=== PATIENT | male | born 1990 | race Caucasian/White ===

== ENCOUNTER 2020-04-15 13:54 | Emergency (ER) | payer OTHER, SELFPAY ==
[2020-04-15 14:14] VITALS: BP 122/87; PULSE 77; RESP 18; TEMP 36.4; O2SAT 98; BMI 34.7
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
== END 2020-04-15 14:56 | disposition home or self-care (01) ==
PROVIDERS: Emergency Provider Emergency Medicine; PCP Family Medicine
DX: S01.112A Laceration without foreign body of left eyelid and periocular area, initial encounter (principal); W51.XXXA Accidental striking against or bumped into by another person, initial encounter; Y93.66 Activity, soccer; Y92.322 Soccer field as the place of occurrence of the external cause; Y99.9 Unspecified external cause status
CPT/HCPCS: 12011; 90471; 99283; 99284

== ENCOUNTER 2020-04-26 22:12 | Emergency (ER) | payer OTHER, SELFPAY | END 2020-04-26 22:23 | disposition left against medical advice (07) | PROVIDERS: Emergency Provider Emergency Medicine Emergency Medical Services | DX: R05 Cough (principal) ==

== ENCOUNTER 2020-10-15 09:19 | Emergency (ER) | payer OTHER, SELFPAY ==
--- NOTE | ~2020-10-15 | MR_ITS ---
EXAMINATION: MR LUMBAR SPINE WITHOUT CONTRAST CLINICAL INFORMATION: Fecal incontinence. Back pain. Question cauda equina syndrome. COMPARISON: No relevant prior imaging. TECHNIQUE: MRI of the lumbar spine was obtained using routine sequences without contrast. FINDINGS: Alignment is normal. Vertebral body heights are preserved. No acute bone marrow signal changes. There is slight loss of intervertebral disc height and T2 signal intensity at L5-S1. The tip of the conus medullaris is located at L1-L2. No mass effect on the conus. Visualized distal cord signal intensity is normal. At L1-L2, L2-L3, L3-L4, and L4-L5 the annular contours are normal. No canal compromise. No mass effect on traversing or foraminal nerve roots at these 4 levels. At L5-S1 there is a broad central to right subarticular protrusion that causes abutment of the right traversing S1 nerve roots. Mild mass effect on the right L5 foraminal nerve root. Limited visualization of the retroperitoneal anatomy reveals no abnormal finding. Psoas and paraspinal muscle groups are symmetric. MR/MR lumbar spine wo con IMPRESSION: There is a broad shallow central to right subarticular protrusion at L5-S1 the causes subtle abutment of the right traversing S1 nerve roots and there is also mild mass effect on the foraminal segment of the right L5 nerve root at this level. Otherwise unremarkable lumbar spine MRI. No canal stenosis.
--- NOTE | ~2020-10-15 | CT_ITS ---
EXAMINATION: CT ABDOMEN AND PELVIS WITH CONTRAST CLINICAL INFORMATION: Hematuria with fecal incontinence and back pain COMPARISON: None TECHNIQUE: Multidetector volumetric images were obtained from the superior aspect of the liver through the pubic symphysis following administration 85 mL of Omnipaque 350 intravenous contrast. Sagittal and coronal reformatted images were obtained on the technologist's workstation. Oral contrast: No This CT examination was performed using dose optimization techniques as appropriate, variously including the following: *Automated exposure control *Adjustment of mA and/or kV according to patient size (this includes techniques or standardized protocols for targeted exams where dose is matched to indication/reason for exam; i.e. extremities or head) *Use of iterative reconstruction technique DLP: 927 mGy-cm FINDINGS: LUNG BASES: The visualized lung bases are unremarkable. LIVER, GALLBLADDER, AND BILIARY TREE: The liver is normal in size, shape, and attenuation. No focal hepatic lesion or biliary ductal dilatation is present. The gallbladder has been surgically removed. PANCREAS: Unremarkable. SPLEEN: Unremarkable. ADRENAL GLANDS: Unremarkable. KIDNEYS AND URETERS: The kidneys are normal in size, shape, and attenuation. No hydronephrosis, hydroureter, or calculi seen. No perinephric stranding. BLADDER: Unremarkable. GASTROINTESTINAL TRACT: There is scattered stool and gas seen throughout the colon without any significant distention. The small bowel loops are normal caliber. Appendix is normal caliber. The stomach is nondistended. No inflammatory process seen in the abdomen. ABDOMINAL WALL: No significant hernia is appreciated. LYMPH NODES: Normal. VASCULAR: Unremarkable. PELVIC VISCERA: Unremarkable. OSSEOUS STRUCTURES: No lytic or sclerotic process seen. CT/CT abdomen pelvis w con IMPRESSION: No acute intra-abdominal process seen. Especially there is no abnormality seen in the pelvis.
[2020-10-15 09:21] VITALS: BP 152/83; PULSE 98; RESP 16; TEMP 36.8; O2SAT 98; BMI 35.6
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
[2020-10-15] MEDS: LORazepam 1 MG TABLET 2 MG PO (10:29)
[2020-10-15 10:48] LABS: Basophils Percent Auto 0.6 % (0-2); Eosinophils Absolute Auto 0.1 X10*3/uL (0.0-0.4); Eosinophils Percent Auto 1.4 % (0-4); Hematocrit 41.6 % (42-52); Hemoglobin 13.9 g/dl (14.0-18.0); Imm Gran Abs Auto 0.02 X10*3/uL (0.00-0.03); Imm Gran Pct Auto 0.3 % (0.0-0.4); Lymphocytes Percent Auto 31.6 % (20-40); MANUAL DIFF FLAG NO; Mean Corpuscular HGB Conc 33.4 g/dl (31.0-36.0); Mean Corpuscular Hemoglobin 28.2 pg (27.0-33.0); Mean Corpuscular Volume 84.4 fL (80-98); Mean Platelet Volume 9.4 fL (9.4-12.4); Monocytes Absolute Auto 0.5 X10*3/uL (0.1-1.2); Monocytes Percent Auto 8.5 % (2-11); Neutrophils Absolute Auto 3.7 X10*3/uL (2.0-8.3); Neutrophils Percent Auto 57.6 % (45-73); Platelet Count 306 X10*3/uL (160-400); Red Blood Count 4.93 X10*6/uL (4.60-5.80); Red Cell Distribution Width 13.3 % (11.0-16.0); White Blood Count 6.4 X10*3/uL (4.8-10.8)
[2020-10-15 10:51] LABS: Glucose Urine UA NEG (NEG); Leukocyte Esterase Urine NEG (NEG); Nitrite Urine NEG (NEG); PH 5.5 (5.0-8.0); Specific Gravity - Urine >= 1.030 (1.005-1.025); Urine Blood 3+ (NEG); Urine Ketones 5 MG/DL (NEG); Urine Protein 1+ MG/DL (NEG-TRACE)
[2020-10-15 10:54] LABS: INTERNATIONAL NORM RATIO 1.1 (0.9-1.1); Prothrombin Time 13.6 SEC (10.8-13.0)
[2020-10-15 10:59] LABS: Appearance Urine TURBID; Color Urine DARK YELLOW
[2020-10-15 11:08] LABS: Amorphous Sediment Urine 4+ /LPF; WBC Urine 0 /HPF (0-4)
[2020-10-15 11:09] LABS: Magnesium 1.7 mg/dL (1.6-2.6)
[2020-10-15 11:10] LABS: Alanine Aminotransferase 22 U/L (0-40); Albumin Level 4.7 g/dL (3.5-5.0); Alkaline Phosphatase 84 U/L (39-117); Anion Gap 15 (12-20); Aspartate Amino Transferase 19 U/L (5-37); Bilirubin Total 0.8 mg/dL (0.0-1.0); Blood Urea Nitrogen 14 mg/dL (9-16); Calcium 9.9 mg/dL (8.4-10.2); Carbon Dioxide 23 mmol/L (22-29); Chloride 108 mmol/L (96-108); Creatinine Clr Calc Pharmacy 154.6; Estimated Glomerular Filt Rate > 60; Glucose Random 96 mg/dL (60-115); Potassium 4.5 mmol/L (3.3-5.1); Sodium 141 mmol/L (135-145); Total Protein 7.9 g/dL (6.5-8.0)
[2020-10-15 11:33] LABS: Syphilis Screen Reactive (Nonreactive)
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
[2020-10-15] MEDS: iohexoL 350 MG/ML 100 ML INFUS..BTL IV (12:19)
[2020-10-15] MEDS: cefTRIAXone sodium 500 MG, Lidocaine HCl 1 % MPF 1 ML IM (13:36)
[2020-10-15] MEDS: Penicillin G Benzathine 2,400,000 UNIT/4 ML SYRINGE 2400000 UNIT IM (13:36)
[2020-10-15 14:46] VITALS: BP 141/70; PULSE 78; RESP 16; O2SAT 98
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
--- NOTE | 2020-10-15 15:26 | PC.NURSE ---
pt spoke with case management and has been given follow up resources. discharged home , ambulatory with steady gait
[2020-10-15 16:25] LABS: CT PCR NOT DETECTED (Not Detect.); NG PCR NOT DETECTED (Not Detect.)
[2020-10-21 13:51] LABS: RPR Quantitative Reactive 1:1 (Nonreactive); T.Pallidum Particle Agg Test Reactive (Nonreactive)
== END 2020-10-15 15:27 | disposition home or self-care (01) ==
PROVIDERS: Physician Assistant Medical; Emergency Provider Emergency Medicine Emergency Medical Services; PCP Family Medicine
DX: A53.9 Syphilis, unspecified (principal); R31.9 Hematuria, unspecified; M54.5 Low back pain; Z79.899 Other long term (current) drug therapy
CPT/HCPCS: 36415; 72148; 74177; 80053; 81001; 83735; 85025; 85610; 86592; 86780; 87491; 87591; 96360; 99284; J0561; J0696; Q9967

== ENCOUNTER 2021-02-11 12:30 | Outpatient (REF) | payer OTHER, SELFPAY ==
[2021-02-12 10:10] LABS: Syphilis Screen Reactive (Nonreactive)
[2021-02-14 04:52] LABS: HBc Num1 0.21 S/CO (0.00-0.79); Hepatitis B Core Antibody Nonreactive (Nonreactive); Hepatitis B Surface Antigen Negative (Negative); ~HepC Num1 0.14 S/CO (0.00-0.79); ~Hepatitis C Antibody Nonreactive (Nonreactive)
[2021-02-14 05:56] LABS: HBS Num1 3.07 mIU/mL (0-7.99); HIV Num 1 172.53 S/CO (0.00-0.99); ~Hepatitis B Surface Antibody NONREACTIVE (Nonreactive)
[2021-02-14 08:56] LABS: HIV Num 2 173.93 S/CO; HIV Num 3 172.93 S/CO
[2021-02-14 08:57] LABS: HIV AB/AG Reactive (Nonreactive)
[2021-02-18 13:52] LABS: RPR Quantitative Non-Reactive (Nonreactive)
[2021-02-18 13:54] LABS: T.Pallidum Particle Agg Test Reactive (Nonreactive)
[2021-02-24 11:10] LABS: HIV 2 Antibody NEGATIVE
[2021-02-25 09:57] LABS: HIV 1 Antibody POSITIVE
== END 2021-02-11 12:31 | disposition home or self-care (01) ==
LOC: HO.LAB 12:30
PROVIDERS: PCP Family Medicine; Visit Provider Family Medicine
DX: Z11.3 Encounter for screening for infections with a predominantly sexual mode of transmission (principal)
CPT/HCPCS: 36415; 86592; 86701; 86702; 86704; 86706; 86780; 86803; 87340; 87389

== ENCOUNTER 2021-03-01 14:35 | Outpatient (REF) | payer OTHER, SELFPAY ==
[2021-03-02 02:51] LABS: CT PCR NOT DETECTED (Not Detect.); NG PCR NOT DETECTED (Not Detect.)
[2021-03-02 08:33] LABS: HBc Num1 0.13 S/CO (0.00-0.79); HBsAGNum1 0.22 S/CO (0.00-0.99); Hepatitis B Core Antibody Nonreactive (Nonreactive); Hepatitis B Surface Antigen Negative (Negative); ~HepC Num1 0.13 S/CO (0.00-0.79); ~Hepatitis C Antibody Nonreactive (Nonreactive)
[2021-03-02 08:43] LABS: HBS Num1 3.33 mIU/mL (0-7.99); ~Hepatitis B Surface Antibody NONREACTIVE (Nonreactive)
[2021-03-02 15:47] LABS: Rubeola IgG (Measles) >300.00 AU/mL
== END 2021-03-01 14:36 | disposition home or self-care (01) ==
LOC: HO.LAB 14:35
PROVIDERS: PCP Family Medicine; Visit Provider Family Medicine
DX: Z01.84 Encounter for antibody response examination (principal); Z11.3 Encounter for screening for infections with a predominantly sexual mode of transmission; Z71.89 Other specified counseling
CPT/HCPCS: 86704; 86706; 86735; 86762; 86765; 86787; 86803; 87340; 87491; 87591

== ENCOUNTER 2021-09-25 17:12 | Emergency (ER) | payer OTHER, SELFPAY ==
--- NOTE | 2021-09-25 | ECG_ITS ---
Test Reason : chest pain Blood Pressure : / mmHG Vent. Rate : 098 BPM Atrial Rate : 098 BPM P-R Int : 152 ms QRS Dur : 102 ms QT Int : 354 ms P-R-T Axes : 042 -06 026 degrees QTc Int : 451 ms Normal sinus rhythm with sinus arrhythmia Normal ECG When compared with ECG of 05-OCT-2019 13:44, No significant change was found Referred By: Generic ED Physician Electronically Signed By:STEFANO GEORGE
[2021-09-25 17:18] VITALS: BP 148/89; PULSE 86; RESP 20; TEMP 37.1; O2SAT 95; BMI 35.6
[2021-09-25 17:45] LABS: Strep A Nucleic Acid Negative (Negative)
[2021-09-25 18:12] LABS: Influenza A PCR NEGATIVE (Negative); Influenza B PCR NEGATIVE (Negative); Resp Syncy Virus RNA Qual PCR NEGATIVE (Negative); SARS COV2 PCR INHOUSE NEGATIVE (Negative)
--- NOTE | 2021-09-25 19:29 | ED_ITS ---
HPI - General Adult General Chief complaint: General Medical Stated complaint: sore throat/chest pains Time Seen by Provider: 09/25/21 19:29 Source: patient Mode of arrival: ambulatory Limitations: no limitations History of Present Illness HPI narrative: Pain with HIV undetectable viral load complaining of sore throat for last 4 weeks no fever no difficulty in swallowing no gland enlargement patient's CD4 count is above 1000 although patient complaining of left-sided chest pain since yesterday no shortness of breath pain is sharp in character comes and goes lasting for only few seconds Related Data Home Medications Medication Instructions Recorded Confirmed bictegravir 50 mg-emtricitabine 1 tab PO DAILY 10/18/20 200 mg-tenofovir alafenam 25 mg tablet Previous Rx's Medication Instructions Recorded fluticasone propionate 50 1 spray INTRANASAL DAILY #16 g 07/05/20 mcg/actuation nasal spray,suspension doxycycline monohydrate 100 mg 100 mg PO BID 10 Days #20 cap 10/15/20 capsule citalopram 10 mg tablet 10 mg PO DAILY 30 Days #30 tab 05/20/21 Allergies Allergy/AdvReac Type Severity Reaction Status Date / Time No Known Allergies Allergy Verified 03/08/21 12:10 Review of Systems Review of Systems: Yes all other systems are reviewed and are negative [facility] Past Medical History Medical History HIV (human immunodeficiency virus infection) Social History Social History Alcohol intake: never Substance Use Type: Marijuana Advance Directives: No Advance Directives Information Provided: No Physical Exam ED Vital Signs: Vital Signs - 24 hr 09/25/21 17:18 Temperature 98.8 F Pulse Rate 86 Respiratory Rate 20 Blood Pressure 148/89 H Pulse Oximetry 95 BMI result Body Mass Index 35.6 Appearance: Alert. Oriented X3. No acute distress. Anxious ENT: Pharynx normal. Oral Mucosa moist no exudate, tonsils are normal Neck: Normal inspection. Neck supple. CVS: Normal heart rate and rhythm. Pulses normal. Respiratory: No respiratory distress. Equal air entry bilateral, no wheezing/rales/rhonchi Abdomen: Soft and nontender. Skin: Skin warm and dry. Normal skin color. Normal skin turgor. Extremities: No lower extremity edema. No calf tenderness Neuro: Oriented X 3. Medical Decision Making Lab Data Labs: Lab Results 09/25/21 09/25/21 Range/Units 17:23 17:24 Influenza Type A (PCR) NEGATIVE (Negative) Influenza Type B (PCR) NEGATIVE (Negative) RSV RNA Qual (PCR) NEGATIVE (Negative) SARS-CoV-2 RNA (RT-PCR) NEGATIVE (Negative) S. pyogenes GrpA VIRAL Negative (Negative) Discharge Plan Discharge Clinical Impression: Anxiety, Viral sore throat Patient Disposition: Home, Self-Care Instructions: Pharyngitis (ED), Anxiety (ED) Additional Instructions: your throat looks normal likely viral pharyngitis Cough drops as advised Drink plenty of fluids,do saline gargles as Advised Prescriptions: No Action fluticasone propionate 50 mcg/actuation spray,suspension 1 spray intranasal DAILY Qty: 16 0RF citalopram 10 mg tablet 10 mg PO DAILY 30 Days Qty: 30 0RF doxycycline monohydrate 100 mg capsule 100 mg PO BID 10 Days Qty: 20 0RF Biktarvy 50-200-25 mg tablet 1 tab PO DAILY 0RF
[2021-09-25 19:35] VITALS: BP 155/98; PULSE 74; RESP 16; TEMP 36.6; O2SAT 96
== END 2021-09-25 19:39 | disposition home or self-care (01) ==
PROVIDERS: Emergency Provider Internal Medicine; PCP Family Medicine
DX: J02.8 Acute pharyngitis due to other specified organisms (principal); R07.89 Other chest pain; F41.1 Generalized anxiety disorder; F43.0 Acute stress reaction; Z20.822 Contact with and (suspected) exposure to COVID-19; Z79.899 Other long term (current) drug therapy
CPT/HCPCS: 0241U; 87651; 93005; 99284

== ENCOUNTER 2021-12-05 10:39 | Outpatient (REF) | payer OTHER, SELFPAY ==
[2021-12-05 13:29] LABS: MANUAL DIFF FLAG NO
[2021-12-05 13:33] LABS: Basophils Absolute Auto 0.1 X10*3/uL (0.0-0.2); Basophils Percent Auto 0.9 % (0-2); Eosinophils Absolute Auto 0.2 X10*3/uL (0.0-0.4); Eosinophils Percent Auto 2.7 % (0-4); Hematocrit 44.7 % (42.0-52.0); Hemoglobin 14.6 g/dl (14.0-18.0); Imm Gran Abs Auto 0.01 X10*3/uL (0.00-0.03); Imm Gran Pct Auto 0.1 % (0.0-0.4); Lymphocytes Absolute Auto 2.8 X10*3/uL (1.2-4.9); Lymphocytes Percent Auto 41.2 % (20-40); Mean Corpuscular HGB Conc 32.7 g/dl (31.0-36.0); Mean Corpuscular Hemoglobin 27.5 pg (27.0-33.0); Mean Corpuscular Volume 84.3 fL (80.0-98.0); Mean Platelet Volume 10.1 fL (9.4-12.4); Monocytes Absolute Auto 0.5 X10*3/uL (0.1-1.2); Monocytes Percent Auto 7.9 % (2-11); Neutrophils Absolute Auto 3.1 x10*3/uL (2.0-8.3); Neutrophils Percent Auto 47.2 % (45-73); Platelet Count 338 X10*3/uL (160-400); Red Cell Distribution Width 13.1 % (11.0-16.0); White Blood Count 6.7 X10*3/uL (4.8-10.8)
[2021-12-05 14:06] LABS: TSH reflex Free T4 1.11 uIU/mL (0.32-4.0)
== END 2021-12-05 10:40 | disposition home or self-care (01) ==
LOC: HO.WFDLDS 10:39
PROVIDERS: Visit Provider Hospitalist
DX: M54.2 Cervicalgia (principal); M26.609 Unspecified temporomandibular joint disorder, unspecified side
CPT/HCPCS: 36415; 84443; 85025

== ENCOUNTER 2021-12-28 18:27 | Emergency (ER) | payer OTHER, SELFPAY ==
[2021-12-28 19:29] VITALS: BP 125/75; PULSE 77; RESP 18; TEMP 36.6; O2SAT 98; BMI 34.5
[2021-12-28 20:10] LABS: Appearance Urine CLEAR; Color Urine STRAW; Glucose Urine UA NEG (NEG); Leukocyte Esterase Urine NEG (NEG); Nitrite Urine NEG (NEG); Specific Gravity - Urine <= 1.005 (1.005-1.025); Urine Blood NEG (NEG); Urine Ketones NEG (NEG); Urine Protein NEG (NEG-TRACE)
[2021-12-28] MEDS: Penicillin G Benzathine 2,400,000 UNIT/4 ML SYRINGE 2400000 UNIT IM (20:50)
[2021-12-28] MEDS: cefTRIAXone sodium 500 MG, Lidocaine HCl 1 % MPF 1 ML IM (20:51)
--- NOTE | 2021-12-28 20:57 | ED.GENADULT ---
HPI - General Adult General Chief complaint: General Medical Stated complaint: painful urination joint diarrhea Time Seen by Provider: 12/28/21 19:46 Source: patient Mode of arrival: ambulatory Limitations: no limitations History of Present Illness HPI narrative: 31-year-old male presenting to the ED with complaints of painful urination with suprapubic abdominal pain and joint pains with yellow discharge from his penis and intermittent episodes of diarrhea and headaches for the past 3 days. Reports that he had a history of syphilis a year ago from his roommate. Reports that he had recent unprotected intercourse and wants to be treated for gonorrhea/chlamydia and syphilis. Denies any fevers, rashes or thoughts of HIV or any other symptoms complaints or concerns at this time MD complaint: Concern for STD Related Data Home Medications Medication Instructions Recorded Confirmed Bacillus coagulans 10 billion cell cell PO 12/05/21 capsule,delayed release (Probiotic (B. coagulans)) cabotegravir sodium 30 mg tablet 30 mg PO DAILY 12/05/21 (Vocabria) omega-3 fatty acids 500 mg capsule 500 mg PO DAILY 12/05/21 cabotegravir ER 600 mg/3 ml IM 12/20/21 mL-rilpivirine ER 900 mg/3mL IM suspension,ER (Cabenuva) Previous Rx's Medication Instructions Recorded fluticasone propionate 50 1 spray intranasal DAILY #16 grams 07/05/20 mcg/actuation nasal spray,suspension citalopram 10 mg tablet 10 mg PO DAILY 30 days #30 tabs 05/20/21 azithromycin 250 mg tablet See Rx Instructions PO .COMPLEX #6 12/20/21 tabs doxycycline monohydrate 100 mg 100 mg PO BID 10 days #20 tabs 12/28/21 tablet Allergies Allergy/AdvReac Type Severity Reaction Status Date / Time No Known Allergies Allergy Verified 12/20/21 11:59 Review of Systems Review of Systems: Constitutional : No Weight loss, No Fever, No Chills, No Night Sweats, No Fatigue, NoMalaise ENT/Mouth: No ear pain, No sore throat, No Difficulty swallowing Cardiovascular : No Chest Pain, No SOB, No Dyspnea on Exertion, No Orthopnea, NoEdema, No Palpitations Respiratory : No Cough, No Sputum, No Wheezing, No Dyspnea Gastrointestinal : No Nausea, No Vomiting, No Diarrhea, + abdominal Pain, No Hematochezia, No Melena Genitourinary : + dysuria with urinary frequency/urgency and abnormal penile discharge, No testicular pain, No irregular bleeding, No Dysuria, No Urinary Frequency, No Hematuria,No Urinary Incontinence, No Urgency, No Flank Pain Musculoskeletal : No joint pain, No Myalgias, No Joint Swelling Skin : No Skin Lesions, No rash Neuro : No Weakness, No Numbness, No Paresthesias, No Loss of Consciousness, NoDizziness, No Headache Psych : No Social Issues, Heme/Lymph: No Bruising, No Bleeding,No Lymphadenopathy Endocrine : No Polyuria, No Polydipsia, No Temperature Intolerance Patient has thoughts of STDs and would like to be treated. Yes all other systems are reviewed and are negative [facility] Past Medical History Attestation statement: The following information was validated with the patient. Source: old records reviewed and nursing notes reviewed Medical History HIV (human immunodeficiency virus infection) Social History Social History Housing: House Alcohol intake: never Patient Tobacco Use Status: Never used Tobacco e-Cigarette/Vaping Use: Never Used Substance Use Type: Marijuana Advance Directives: No Current occupational status: employed and student Cognitive needs: No Hearing needs: No Vision needs: No Physical Exam ED Vital Signs: Vital Signs - 24 hr 12/28/21 19:29 Temperature 97.9 F Pulse Rate 77 Respiratory Rate 18 Blood Pressure 125/75 Pulse Oximetry 98 Oxygen Delivery Method Room Air BMI result Body Mass Index 34.5 vital signs have been reviewed as normal and appeared to be correct. Blood pressure normal. Heart rate normal. Respiration rate normal. Temperature normal. Oxygen saturation normal. Appearance: Alert. Oriented X3. No acute distress. Head: Normal external exam. Normocephalic. Atraumatic. Eyes: PERRLA. EOMI. Conjunctiva and sclera normal. Eyelids normal. ENT: Pharynx normal. Uvula midline. Moist mucous membranes. Neck: Normal inspection. Neck supple. FROM. No adenopathy. No meningeal signs. CVS: Normal heart rate and rhythm. Heart sound normal. No murmurs noted. Pulses normal throughout. Respiratory: No respiratory distress. Painless inspiration. Breath sounds normal. No wheezes/rales/rhonchi noted. Chest nontender. No accessory muscle usage noted or decreased air movement noted. Abdomen: Soft and nontender. Bowel sounds normal in all 4 quadrants. No distention noted. No organomegaly noted. No visible injury noted. : Chaperoned by ANNY Cardenas. Normal external exam. No masses/lumps/ecchymosis/edema/erythema/lacerations/lesions/vesicles/induration or tenderness noted. No hernia noted. No inguinal lymphadenopathy noted. Normal penis free of discharge. The scrotum is normal. Testicles are both descended bilaterally and appear normal. No hydrocele or scrotal mass/swelling noted. No varicocele. Epididymides normal. No blue dot sign. Back: No CVA tenderness. Full range of motion noted. Skin: Skin warm and dry. Normal skin color. Normal skin turgor. No rashes/lesions/lacerations noted. Extremities: Extremities exhibit normal range of motion. Extremities nontender. Neuro: Oriented X 3. No motor deficit. No sensory deficit. Reflexes normal Course Course Course Narrative: Patient has pending syphilis/gonorrhea chlamydia. I explained to him if he wants HIV testing he will need to go to [facility] for proper follow-up. Will treat him with 500 mg of IM Rocephin for gonorrhea, 100 mg of doxycycline b.i.d. for 10 days and penicillin G along with instructions to stay absence from any sexual intercourse and to return if any new or worsening symptoms and his partners have to be treated. Patient understands agrees with this plan. Medical Decision Making Medical Records Medical records reviewed: Yes I reviewed the patient's medical records. Lab Data Lab results reviewed: Yes I reviewed the patient's lab results. Labs: Lab Results 12/28/21 Range/Units 19:59 Urine Color STRAW Urine Appearance CLEAR Urine pH 7.0 (5.0-8.0) Ur Specific Ralls <= 1.005 (1.005-1.025) Urine Protein NEG (NEG-TRACE) MG/DL Urine Glucose (UA) NEG (NEG) MG/DL Urine Ketones NEG (NEG) MG/DL Urine Blood NEG (NEG) Urine Nitrite NEG (NEG) Ur Leukocyte Esterase NEG (NEG) Discharge Plan Discharge Clinical Impression: Screen for STD (sexually transmitted disease) Patient Disposition: Home, Self-Care Instructions: Sexually Transmitted Diseases (ED), Male Condom Use (ED), Safe Sex Practices (ED) Additional Instructions: You have pending lab results if any are positive you will be contacted within 7-10 days. Or you can check the patient portal any might find the results prior to 7-10 days. Stay abstinent from any sexual intercourse for at least 10-14 days until you completely finish your antibiotics. Return if any new or worsening symptoms. All your partner should also be treated. Follow-up with her primary care provider. If you want any HIV testing please go to [facility] due to proper follow-up. Prescriptions: New doxycycline monohydrate 100 mg tablet 100 mg PO BID 10 Days Qty: 20 0RF No Action fluticasone propionate 50 mcg/actuation spray,suspension 1 spray intranasal DAILY Qty: 16 0RF citalopram 10 mg tablet 10 mg PO DAILY 30 Days Qty: 30 0RF Cabenuva 600 mg/3 mL- 900 mg/3 mL suspension,extended release IM azithromycin 250 mg tablet See Rx Instructions PO .COMPLEX Qty: 6 0RF Rx Instructions: take 500 mg today (day 1), then 250 mg for 4 days (days 2-5) PO Vocabria 30 mg tablet 30 mg PO DAILY Probiotic (B. coagulans) 10 billion cell capsule,delayed release(DR/EC) PO omega-3 fatty acids 500 mg capsule 500 mg PO DAILY Referrals: Amos Oliver MD [Primary Care Provider] - 2 days
[2021-12-29 02:18] LABS: CT PCR NOT DETECTED (Not Detect.); NG PCR NOT DETECTED (Not Detect.)
[2021-12-30 13:37] LABS: Syphilis Screen Reactive (Nonreactive)
[2022-01-09 12:10] LABS: RPR Quantitative Non-Reactive (Nonreactive); T.Pallidum Particle Agg Test Inconclusive (Nonreactive)
== END 2021-12-28 21:02 | disposition home or self-care (01) ==
PROVIDERS: Physician Assistant Medical; Emergency Provider Emergency Medicine; PCP Family Medicine
DX: Z20.2 Contact with and (suspected) exposure to infections with a predominantly sexual mode of transmission (principal); R30.0 Dysuria; B20 Human immunodeficiency virus [HIV] disease; F12.90 Cannabis use, unspecified, uncomplicated
CPT/HCPCS: 36415; 81003; 86592; 86780; 87491; 87591; 96372; 99282; 99284; J0561; J0696

== ENCOUNTER 2022-01-16 10:15 | Outpatient (REF) | payer OTHER, SELFPAY ==
[2022-01-16 11:27] LABS: Hemoglobin 14.5 g/dl (14.0-18.0); Mean Corpuscular HGB Conc 32.2 g/dl (31.0-36.0); Mean Corpuscular Hemoglobin 26.9 pg (27.0-33.0); Mean Corpuscular Volume 83.3 fL (80.0-98.0); Mean Platelet Volume 9.8 fL (9.4-12.4); Platelet Count 272 X10*3/uL (160-400); Red Cell Distribution Width 13.1 % (11.0-16.0); White Blood Count 5.2 X10*3/uL (4.8-10.8)
[2022-01-16 12:11] LABS: Alanine Aminotransferase 21 U/L (0-40); Albumin Level 4.7 g/dL (3.5-5.0); Alkaline Phosphatase 78 U/L (39-117); Anion Gap 12 (12-20); Aspartate Amino Transferase 20 U/L (5-37); Bilirubin Total 0.6 mg/dL (0.0-1.0); Blood Urea Nitrogen 11 mg/dL (9-16); Calcium 9.2 mg/dL (8.4-10.2); Carbon Dioxide 29 mmol/L (22-29); Chloride 103 mmol/L (96-108); Cholesterol 123 mg/dL; Estimated Glomerular Filt Rate > 60; Glucose Fasting 88 mg/dL (60-99); HDL Cholesterol 24 mg/dL; LDL Cholesterol Calculated 73 mg/dl; Potassium 4.8 mmol/L (3.3-5.1); Sodium 139 mmol/L (135-145); Total Protein 7.9 g/dL (6.5-8.0); Triglycerides 133 mg/dL
[2022-01-16 12:30] LABS: TSH reflex Free T4 1.88 uIU/mL (0.32-4.0)
== END 2022-01-16 10:16 | disposition home or self-care (01) ==
LOC: HO.LAB 10:15
PROVIDERS: PCP Hospitalist; Visit Provider Hospitalist
DX: Z00.00 Encounter for general adult medical examination without abnormal findings (principal)
CPT/HCPCS: 36415; 80053; 80061; 84443; 85027

== ENCOUNTER 2022-03-23 19:39 | Outpatient (REF) | payer OTHER, SELFPAY | END 2022-03-23 19:40 | disposition home or self-care (01) | LOC: HO.HMGCLNP 19:39 | DX: R10.9 Unspecified abdominal pain (principal) | CPT/HCPCS: 87086 ==

== ENCOUNTER 2022-05-04 | Outpatient (REF) | payer OTHER, SELFPAY ==
--- NOTE | ~2022-05-04 | XR_ITS ---
EXAMINATION: XR SHOULDER, LEFT CLINICAL INFORMATION: Pain COMPARISON: None TECHNIQUE: Three views of the left shoulder. FINDINGS: The bones and soft tissues are normal. No fracture. Glenohumeral and acromioclavicular alignment is anatomic with normal joint space. No abnormal soft tissue calcifications. XR/XR shoulder LT min 2V IMPRESSION: Normal left shoulder.
== END 2022-05-04 00:01 | disposition home or self-care (01) ==
LOC: HO.HOSX
PROVIDERS: Visit Provider Physician Assistant
DX: M75.52 Bursitis of left shoulder (principal)
CPT/HCPCS: 73030; 99202

== ENCOUNTER 2022-05-24 06:20 | Outpatient (REF) | payer OTHER, SELFPAY | END 2022-05-24 06:21 | disposition home or self-care (01) | LOC: HO.HOSX 06:20 | PROVIDERS: Visit Provider Physician Assistant | DX: Z13.89 Encounter for screening for other disorder (principal) ==

== ENCOUNTER 2022-07-28 17:37 | Emergency (ER) | payer OTHER, SELFPAY ==
--- NOTE | ~2022-07-28 | US_ITS ---
EXAMINATION: US THYROID CLINICAL INFORMATION: Palpable area left submandibular region. COMPARISON: None TECHNIQUE: Linear transducer grayscale and color Doppler examination with attention to the region of the thyroid. FINDINGS: SIZE: Measurements of the thyroid lobes and nodules are given in sagittal, anteroposterior and transverse dimensions respectively. Right Thyroid Lobe: 5.4 x 1.8 x 1.7 cm, volume 8.9 mL. Parenchyma: The gland echotexture is normal. Thyroid vascularity is normal. Left Thyroid Lobe: 5.5 x 1.4 x 1.7 cm, volume 6.9 mL. Parenchyma: The gland echotexture is normal. Thyroid vascularity is normal. Isthmus: 0.3 cm in maximum AP dimension. There are no nodules seen except for 3 small cyst cystic areas in the left thyroid lobe. Incidental finding of a benign-appearing lymph node in the left submandibular space measuring 2.2 x 1.1 x 1.8 cm there patient clinically feels a lump. Patient also has a sore throat. US/US thyroid IMPRESSION: Small left submandibular space lymph node where patient clinically feels a lump. It has benign characteristics. 3 small cysts in the left thyroid gland otherwise unremarkable thyroid ultrasound. ACR TI-RADS RECOMMENDATION REFERENCE: Ultrasound-guided fine-needle aspiration, followup ultrasound, no further follow up. * TR1 (0 point) and TR2 (2 points): No FNA or follow up. * TR3 (3 points): FNA if more than or equal to 2.5 cm in maximum dimension, followup ultrasound in 1, 3 and 5 years if 1.5 to 2.4 cm in maximum dimension. * TR4 (4-6 points): FNA if more than or equal to 1.5 cm in maximum dimension, followup ultrasound in 1, 2, 3 and 5 years if 1 to 1.4 cm in maximum dimension. * TR5 (more than or equal to 7 points): FNA if more than or equal to 1 cm in maximum dimension, followup ultrasound every year for 5 years if 0.5 to 0.9 cm in maximum dimension. * TR3, TR4 or TR5 nodules that are below the size threshold for followup receive no follow up.
--- NOTE | 2022-07-28 17:50 | ED_ITS ---
HPI - General Adult General Chief complaint: General Medical <CLAIRE Nixon - Last Filed: 07/28/22 17:57> Stated complaint: sore, tonsils are swollen. Strep? <CLAIRE Nixon - Last Filed: 07/28/22 17:57> Time Seen by Provider: 07/28/22 18:57 <CLAIRE Nixon - Last Filed: 07/28/22 17:57> Source: patient <Hunter Howard MD - Last Filed: 07/28/22 23:22> Mode of arrival: ambulatory <Hunter Howard MD - Last Filed: 07/28/22 23:22> Limitations: no limitations <Hunter Howard MD - Last Filed: 07/28/22 23:22> History of Present Illness HPI narrative: Presented to the Ed c/o sore throat congestion e neck nodule no fever no chills <Hunter Howard MD - Last Filed: 07/28/22 23:22> Onset (ago): week(s) <Hunter Howard MD - Last Filed: 07/28/22 23:22> Location: mouth (throat) <Hunter Howard MD - Last Filed: 07/28/22 23:22> Radiation: non-radiation <Hunter Howard MD - Last Filed: 07/28/22 23:22> Severity: moderate <Hunter Howard MD - Last Filed: 07/28/22 23:22> Pain Consistency: constant <Hunter Howard MD - Last Filed: 07/28/22 23:22> Relieving factors: none <Hunter Howard MD - Last Filed: 07/28/22 23:22> Related Data Home medications: Home Medications Medication Instructions Recorded Confirmed Bacillus coagulans 10 billion cell cell PO 12/05/21 03/23/22 capsule,delayed release (Probiotic (B. coagulans)) omega-3 fatty acids 500 mg capsule 500 mg PO DAILY 12/05/21 03/23/22 bictegravir 50 mg-emtricitabine 1 tab PO DAILY 03/23/22 03/23/22 200 mg-tenofovir alafenam 25 mg tablet (Biktarvy) Previous Rx's Medication Instructions Recorded fluticasone propionate 50 1 spray intranasal DAILY #16 grams 07/05/20 mcg/actuation nasal spray,suspension doxycycline monohydrate 100 mg 100 mg PO BID 10 days #1 tab 01/03/22 tablet venlafaxine 37.5 mg tablet 37.5 mg PO BID #60 tabs 01/11/22 cyclobenzaprine 10 mg tablet 10 mg PO Q12H PRN muscle spasm 10 05/04/22 days #20 tabs naproxen 500 mg tablet 500 mg PO BID PRN pain 14 days #28 05/04/22 tabs ibuprofen 800 mg tablet 800 mg PO TID PRN pain #20 tabs 07/28/22 <CLAIRE Nixon - Last Filed: 07/28/22 17:57> Allergies/adverse reactions: Allergies Allergy/AdvReac Type Severity Reaction Status Date / Time No Known Allergies Allergy Verified 05/04/22 10:52 <CLAIRE Nixon - Last Filed: 07/28/22 17:57> Review of Systems Constitutional: Constitutional: Reports no additional constitutional complaints <Hunter Howard MD - Last Filed: 07/28/22 23:22> ENT: Reports system reviewed and no additional complaints, except as documented <Hunter Howard MD - Last Filed: 07/28/22 23:22> Cardiovascular: Cardiovascular: Reports no additional cardiovascular complaints <Hunter Howard MD - Last Filed: 07/28/22 23:22> Respiratory: Respiratory: Reports no additional respiratory complaints <Hunter Howard MD - Last Filed: 07/28/22 23:22> Gastrointestinal: Gastrointestinal: Reports no additional gastrointestinal complaints <Hunter Howard MD - Last Filed: 07/28/22 23:22> [facility] Past Medical History Medical History: Medical History Flank pain HIV (human immunodeficiency virus infection) <CLAIRE Nixon - Last Filed: 07/28/22 17:57> Social History Social History: Social History Housing: House Alcohol intake: never Patient Tobacco Use Status: Never used Tobacco e-Cigarette/Vaping Use: Never Used Substance Use Type: Marijuana Advance Directives: No Advance Directives Information Provided: No Current occupational status: employed and student Current occupation: [employer], rt hand Cognitive needs: No Hearing needs: No Vision needs: No <CLAIRE Nixon - Last Filed: 07/28/22 17:57> Physical Exam ED Vital Signs: Vital Signs - 24 hr 07/28/22 17:53 07/28/22 19:35 Temperature 97.6 F 98.8 F Pulse Rate 82 80 Respiratory Rate 18 16 Blood Pressure 150/81 H 124/71 Pulse Oximetry 98 98 Oxygen Delivery Method Room Air Room Air BMI result Body Mass Index 33.2 <CLAIRE Nixon - Last Filed: 07/28/22 17:57> Vital Signs - 24 hr 07/28/22 17:53 07/28/22 19:35 Temperature 97.6 F 98.8 F Pulse Rate 82 80 Respiratory Rate 18 16 Blood Pressure 150/81 H 124/71 Pulse Oximetry 98 98 Oxygen Delivery Method Room Air Room Air BMI result Body Mass Index 33.2 <Hunter Howard MD - Last Filed: 07/28/22 23:22> Const General: cooperative <Hunter Howard MD - Last Filed: 07/28/22 23:22> Nutritional Appearance: well nourished <Hunter Howard MD - Last Filed: 07/28/22 23:22> Orientation/consciousness: patient oriented x3 <Hunter Howard MD - Last Filed: 07/28/22 23:22> Limitations: no limitations <Hunter Howard MD - Last Filed: 07/28/22 23:22> HENOR Head: Yes normal to inspection <Hunter Howard MD - Last Filed: 07/28/22 23:22> Ears: hearing grossly normal bilaterally <Hunter Howard MD - Last Filed: 07/28/22 23:22> General nose exam: Normal external nose present <Hunter Howard MD - Last Filed: 07/28/22 23:22> Face and sinus: Yes normal facial exam <Hunter Howard MD - Last Filed: 07/28/22 23:22> Mouth: other (redness throat) <Hunter Howard MD - Last Filed: 07/28/22 23:22> Throat: No abnormal tonsil, No peritonsillar mass, No posterior oropharynx abnormal and Yes other (redness pharynx) <Hunter Howard MD - Last Filed: 07/28/22 23:22> Neck Neck: Yes normal visual inspection and Yes lymphadenopathy <Hunter Howard MD - Last Filed: 07/28/22 23:22> Chest Chest palpation & inspection: normal inspection of the chest <Hunter Howard MD - Last Filed: 07/28/22 23:22> Resp Effort & Inspection: normal respiratory effort <Hunter Howard MD - Last Filed: 07/28/22 23:22> Cardio Jugular venous distension: no JVD <Hunter Howard MD - Last Filed: 07/28/22 23:22> Rate: regular rate <Hunter Howard MD - Last Filed: 07/28/22 23:22> Rhythm: regular rhythm <Hunter Howard MD - Last Filed: 07/28/22 23:22> GI Inspection: Yes normal to inspection <Hunter Howard MD - Last Filed: 07/28/22 23:22> Palpation (GI): Soft to palpation, not firm, nontender and no guarding <Hunter Howard MD - Last Filed: 07/28/22 23:22> Percussion: Yes normal to percussion <Hunter Howard MD - Last Filed: 07/28/22 23:22> Skin General skin exam: no rashes or lesions noted <Hunter Howard MD - Last Filed: 07/28/22 23:22> Lesions: no lesions <Hunter Howard MD - Last Filed: 07/28/22 23:22> Rashes: no rashes <Hunter Howard MD - Last Filed: 07/28/22 23:22> Wounds: no wounds <Hunter Howard MD - Last Filed: 07/28/22 23:22> Neuro General: patient oriented x3 <Hunter Howard MD - Last Filed: 07/28/22 23:22> Cranial nerves: Yes CN's II-XII intact bilaterally <Hunter Howard MD - Last Filed: 07/28/22 23:22> Cognition (Neuro): normal cognition <Hunter Howard MD - Last Filed: 07/28/22 23:22> Course Course Course Narrative: RME performed by America Charles PA-C. Patient is a 32 year old male presenting to the emergency department with a sore throat, weight loss, and left sided thyroid nodule. Patient states that over the last week he has had a sore throat and over the last month he has lost 10lbs and he noticed a nodule on the left side of his thyroid. Labs, swabs, and thyroid US ordered. Patient placed back into the waiting room pending results and room availability. <CLAIRE Nixon - Last Filed: 07/28/22 17:57> Medical Decision Making Medical Decision Making MDM Narrative: Patient looks well is not toxic-appearing his CBC chemistry and normal <Hunter Howard MD - Last Filed: 07/28/22 23:22> Differential Diagnosis covid/viral illness <Hunter Howard MD - Last Filed: 07/28/22 23:22> Lab Data [facility] Lab Attestation statement: I reviewed the patient's lab results. <Hunter Howard MD - Last Filed: 07/28/22 23:22> Result Diagrams: 07/28/22 18:09 07/28/22 18:09 <CLAIRE Nixon - Last Filed: 07/28/22 17:57> Labs: Lab Results 07/28/22 07/28/22 07/28/22 Range/Units 18:09 18:09 18:09 WBC 8.7 (4.8-10.8) X10*3/uL RBC 5.08 (4.60-5.80) X10*6/uL Hgb 13.8 L (14.0-18.0) g/dl Hct 41.7 L (42.0-52.0) % MCV 82.1 (80.0-98.0) fL MCH 27.2 (27.0-33.0) pg MCHC 33.1 (31.0-36.0) g/dl RDW 13.2 (11.0-16.0) % Plt Count 295 (160-400) X10*3/uL MPV 9.4 (9.4-12.4) fL Immature Gran % (Auto) 0.3 (0.0-0.4) % Neut % (Auto) 59.0 (45-73) % Lymph % (Auto) 30.8 (20-40) % [place] % (Auto) 7.3 (2-11) % Eos % (Auto) 1.9 (0-4) % Baso % (Auto) 0.7 (0-2) % Lymph # (Auto) 2.7 (1.2-4.9) X10*3/uL [place] # (Auto) 0.6 (0.1-1.2) X10*3/uL Eos # (Auto) 0.2 (0.0-0.4) X10*3/uL Baso # (Auto) 0.1 (0.0-0.2) X10*3/uL Abs Immat Gran (auto) 0.03 (0.00-0.03) X10*3/uL Absolute Neuts (auto) 5.1 (2.0-8.3) x10*3/uL Absolute Nucleated RBC 0.000 (0.0-0.012) X10*3/uL Nucleated RBC % (auto) 0.0 (0.0-0.2) /100WBC Sodium 140 (135-145) mmol/L Potassium 3.9 (3.3-5.1) mmol/L Chloride 106 (96-108) mmol/L Carbon Dioxide 25 (22-29) mmol/L Anion Gap 13 (12-20) BUN 17 H (9-16) mg/dL Creatinine 0.89 (0.5-1.4) mg/dL Estim Creat Clear Calc 134.1 Estimated GFR > 60 Random Glucose 106 (60-115) mg/dL Calcium 9.4 (8.4-10.2) mg/dL Magnesium 1.9 (1.6-2.6) mg/dL Total Bilirubin 0.3 (0.0-1.0) mg/dL AST 15 (5-37) U/L ALT 12 (0-40) U/L Alkaline Phosphatase 87 (39-117) U/L Total Protein 7.2 (6.5-8.0) g/dL Albumin 4.4 (3.5-5.0) g/dL TSH 1.68 (0.32-4.0) uIU/mL Influenza Type A (PCR) (Negative) Influenza Type B (PCR) (Negative) RSV RNA Qual (PCR) (Negative) SARS-CoV-2 RNA (RT-PCR) (Negative) S. pyogenes GrpA VIRAL Negative (Negative) 07/28/22 Range/Units 18:09 WBC (4.8-10.8) X10*3/uL RBC (4.60-5.80) X10*6/uL Hgb (14.0-18.0) g/dl Hct (42.0-52.0) % MCV (80.0-98.0) fL MCH (27.0-33.0) pg MCHC (31.0-36.0) g/dl RDW (11.0-16.0) % Plt Count (160-400) X10*3/uL MPV (9.4-12.4) fL Immature Gran % (Auto) (0.0-0.4) % Neut % (Auto) (45-73) % Lymph % (Auto) (20-40) % [place] % (Auto) (2-11) % Eos % (Auto) (0-4) % Baso % (Auto) (0-2) % Lymph # (Auto) (1.2-4.9) X10*3/uL [place] # (Auto) (0.1-1.2) X10*3/uL Eos # (Auto) (0.0-0.4) X10*3/uL Baso # (Auto) (0.0-0.2) X10*3/uL Abs Immat Gran (auto) (0.00-0.03) X10*3/uL Absolute Neuts (auto) (2.0-8.3) x10*3/uL Absolute Nucleated RBC (0.0-0.012) X10*3/uL Nucleated RBC % (auto) (0.0-0.2) /100WBC Sodium (135-145) mmol/L Potassium (3.3-5.1) mmol/L Chloride (96-108) mmol/L Carbon Dioxide (22-29) mmol/L Anion Gap (12-20) BUN (9-16) mg/dL Creatinine (0.5-1.4) mg/dL Estim Creat Clear Calc Estimated GFR Random Glucose (60-115) mg/dL Calcium (8.4-10.2) mg/dL Magnesium (1.6-2.6) mg/dL Total Bilirubin (0.0-1.0) mg/dL AST (5-37) U/L ALT (0-40) U/L Alkaline Phosphatase (39-117) U/L Total Protein (6.5-8.0) g/dL Albumin (3.5-5.0) g/dL TSH (0.32-4.0) uIU/mL Influenza Type A (PCR) NEGATIVE (Negative) Influenza Type B (PCR) NEGATIVE (Negative) RSV RNA Qual (PCR) NEGATIVE (Negative) SARS-CoV-2 RNA (RT-PCR) NEGATIVE (Negative) S. pyogenes GrpA VIRAL (Negative) <CLAIRE Nixon - Last Filed: 07/28/22 17:57> Lab Results 07/28/22 07/28/22 07/28/22 Range/Units 18:09 18:09 18:09 WBC 8.7 (4.8-10.8) X10*3/uL RBC 5.08 (4.60-5.80) X10*6/uL Hgb 13.8 L (14.0-18.0) g/dl Hct 41.7 L (42.0-52.0) % MCV 82.1 (80.0-98.0) fL MCH 27.2 (27.0-33.0) pg MCHC 33.1 (31.0-36.0) g/dl RDW 13.2 (11.0-16.0) % Plt Count 295 (160-400) X10*3/uL MPV 9.4 (9.4-12.4) fL Immature Gran % (Auto) 0.3 (0.0-0.4) % Neut % (Auto) 59.0 (45-73) % Lymph % (Auto) 30.8 (20-40) % [place] % (Auto) 7.3 (2-11) % Eos % (Auto) 1.9 (0-4) % Baso % (Auto) 0.7 (0-2) % Lymph # (Auto) 2.7 (1.2-4.9) X10*3/uL [place] # (Auto) 0.6 (0.1-1.2) X10*3/uL Eos # (Auto) 0.2 (0.0-0.4) X10*3/uL Baso # (Auto) 0.1 (0.0-0.2) X10*3/uL Abs Immat Gran (auto) 0.03 (0.00-0.03) X10*3/uL Absolute Neuts (auto) 5.1 (2.0-8.3) x10*3/uL Absolute Nucleated RBC 0.000 (0.0-0.012) X10*3/uL Nucleated RBC % (auto) 0.0 (0.0-0.2) /100WBC Sodium 140 (135-145) mmol/L Potassium 3.9 (3.3-5.1) mmol/L Chloride 106 (96-108) mmol/L Carbon Dioxide 25 (22-29) mmol/L Anion Gap 13 (12-20) BUN 17 H (9-16) mg/dL Creatinine 0.89 (0.5-1.4) mg/dL Estim Creat Clear Calc 134.1 Estimated GFR > 60 Random Glucose 106 (60-115) mg/dL Calcium 9.4 (8.4-10.2) mg/dL Magnesium 1.9 (1.6-2.6) mg/dL Total Bilirubin 0.3 (0.0-1.0) mg/dL AST 15 (5-37) U/L ALT 12 (0-40) U/L Alkaline Phosphatase 87 (39-117) U/L Total Protein 7.2 (6.5-8.0) g/dL Albumin 4.4 (3.5-5.0) g/dL TSH 1.68 (0.32-4.0) uIU/mL Influenza Type A (PCR) (Negative) Influenza Type B (PCR) (Negative) RSV RNA Qual (PCR) (Negative) SARS-CoV-2 RNA (RT-PCR) (Negative) S. pyogenes GrpA VIRAL Negative (Negative) 07/28/22 Range/Units 18:09 WBC (4.8-10.8) X10*3/uL RBC (4.60-5.80) X10*6/uL Hgb (14.0-18.0) g/dl Hct (42.0-52.0) % MCV (80.0-98.0) fL MCH (27.0-33.0) pg MCHC (31.0-36.0) g/dl RDW (11.0-16.0) % Plt Count (160-400) X10*3/uL MPV (9.4-12.4) fL Immature Gran % (Auto) (0.0-0.4) % Neut % (Auto) (45-73) % Lymph % (Auto) (20-40) % [place] % (Auto) (2-11) % Eos % (Auto) (0-4) % Baso % (Auto) (0-2) % Lymph # (Auto) (1.2-4.9) X10*3/uL [place] # (Auto) (0.1-1.2) X10*3/uL Eos # (Auto) (0.0-0.4) X10*3/uL Baso # (Auto) (0.0-0.2) X10*3/uL Abs Immat Gran (auto) (0.00-0.03) X10*3/uL Absolute Neuts (auto) (2.0-8.3) x10*3/uL Absolute Nucleated RBC (0.0-0.012) X10*3/uL Nucleated RBC % (auto) (0.0-0.2) /100WBC Sodium (135-145) mmol/L Potassium (3.3-5.1) mmol/L Chloride (96-108) mmol/L Carbon Dioxide (22-29) mmol/L Anion Gap (12-20) BUN (9-16) mg/dL Creatinine (0.5-1.4) mg/dL Estim Creat Clear Calc Estimated GFR Random Glucose (60-115) mg/dL Calcium (8.4-10.2) mg/dL Magnesium (1.6-2.6) mg/dL Total Bilirubin (0.0-1.0) mg/dL AST (5-37) U/L ALT (0-40) U/L Alkaline Phosphatase (39-117) U/L Total Protein (6.5-8.0) g/dL Albumin (3.5-5.0) g/dL TSH (0.32-4.0) uIU/mL Influenza Type A (PCR) NEGATIVE (Negative) Influenza Type B (PCR) NEGATIVE (Negative) RSV RNA Qual (PCR) NEGATIVE (Negative) SARS-CoV-2 RNA (RT-PCR) NEGATIVE (Negative) S. pyogenes GrpA VIRAL (Negative) <Hunter Howard MD - Last Filed: 07/28/22 23:22> Discharge Plan Discharge Clinical Impression: Acute viral pharyngitis <CLAIRE Nixon - Last Filed: 07/28/22 17:57> Patient Disposition: Home, Self-Care <CLAIRE Nixon - Last Filed: 07/28/22 17:57> Instructions: Pharyngitis (ED) <CLAIRE Nixon - Last Filed: 07/28/22 17:57> Additional Instructions: We recommend you take Motrin/ibuprofen 800 mg every 8 hours follow-up with your primary care physician return if you worse any concern <CLAIRE Nixon - Last Filed: 07/28/22 17:57> Prescriptions: New ibuprofen 800 mg tablet 800 mg PO TID PRN (Reason: pain) Qty: 20 0RF No Action fluticasone propionate 50 mcg/actuation spray,suspension 1 spray intranasal DAILY Qty: 16 0RF venlafaxine 37.5 mg tablet 37.5 mg PO BID Qty: 60 1RF Rx Instructions: take one for 5 days if well tolerated may increase to twice a day doxycycline monohydrate 100 mg tablet 100 mg PO BID 10 Days Qty: 1 0RF Rx Instructions: pt dropped one pill down the sink needs one more cap to complete the therapy Probiotic (B. coagulans) 10 billion cell capsule,delayed release(DR/EC) PO omega-3 fatty acids 500 mg capsule 500 mg PO DAILY Biktarvy 50-200-25 mg tablet 1 tab PO DAILY naproxen 500 mg tablet 500 mg PO BID PRN (Reason: pain) 14 Days Qty: 28 0RF cyclobenzaprine 10 mg tablet 10 mg PO Q12H PRN (Reason: muscle spasm) 10 Days Qty: 20 0RF <CLAIRE Nixon - Last Filed: 07/28/22 17:57> Referrals: Benito,Amos, MD [Primary Care Provider] - 3 days <CLAIRE Nixon - Last Filed: 07/28/22 17:57> Interventions: ED Discharge Assessment Last Done: 07/28/22 19:49 <CLAIRE Nixon - Last Filed: 07/28/22 17:57> Discharge Date/Time: 07/28/22 19:35 <CLAIRE Nixon - Last Filed: 07/28/22 17:57>
[2022-07-28 17:53] VITALS: BP 150/81; PULSE 82; RESP 18; TEMP 36.4; O2SAT 98; BMI 33.2
[2022-07-28 18:13] LABS: MANUAL DIFF FLAG NO
[2022-07-28 18:25] LABS: IDNOW Serial# 6674DD1D; Strep A Nucleic Acid Negative (Negative)
[2022-07-28 18:32] LABS: Basophils Absolute Auto 0.1 X10*3/uL (0.0-0.2); Basophils Percent Auto 0.7 % (0-2); Eosinophils Absolute Auto 0.2 X10*3/uL (0.0-0.4); Eosinophils Percent Auto 1.9 % (0-4); Hematocrit 41.7 % (42.0-52.0); Hemoglobin 13.8 g/dl (14.0-18.0); Imm Gran Abs Auto 0.03 X10*3/uL (0.00-0.03); Imm Gran Pct Auto 0.3 % (0.0-0.4); Lymphocytes Absolute Auto 2.7 X10*3/uL (1.2-4.9); Lymphocytes Percent Auto 30.8 % (20-40); Mean Corpuscular HGB Conc 33.1 g/dl (31.0-36.0); Mean Corpuscular Hemoglobin 27.2 pg (27.0-33.0); Mean Corpuscular Volume 82.1 fL (80.0-98.0); Mean Platelet Volume 9.4 fL (9.4-12.4); Monocytes Absolute Auto 0.6 X10*3/uL (0.1-1.2); Monocytes Percent Auto 7.3 % (2-11); Neutrophils Absolute Auto 5.1 x10*3/uL (2.0-8.3); Platelet Count 295 X10*3/uL (160-400); Red Blood Count 5.08 X10*6/uL (4.60-5.80); Red Cell Distribution Width 13.2 % (11.0-16.0); White Blood Count 8.7 X10*3/uL (4.8-10.8)
[2022-07-28 18:43] LABS: Alanine Aminotransferase 12 U/L (0-40); Albumin Level 4.4 g/dL (3.5-5.0); Alkaline Phosphatase 87 U/L (39-117); Anion Gap 13 (12-20); Aspartate Amino Transferase 15 U/L (5-37); Bilirubin Total 0.3 mg/dL (0.0-1.0); Blood Urea Nitrogen 17 mg/dL (9-16); Calcium 9.4 mg/dL (8.4-10.2); Carbon Dioxide 25 mmol/L (22-29); Chloride 106 mmol/L (96-108); Creatinine Clr Calc Pharmacy 134.1; Estimated Glomerular Filt Rate > 60; Glucose Random 106 mg/dL (60-115); Magnesium 1.9 mg/dL (1.6-2.6); Potassium 3.9 mmol/L (3.3-5.1); Sodium 140 mmol/L (135-145); Total Protein 7.2 g/dL (6.5-8.0)
[2022-07-28 18:51] LABS: Influenza A PCR NEGATIVE (Negative); Influenza B PCR NEGATIVE (Negative); Resp Syncy Virus RNA Qual PCR NEGATIVE (Negative); SARS COV2 PCR INHOUSE NEGATIVE (Negative)
[2022-07-28 18:57] LABS: TSH reflex Free T4 1.68 uIU/mL (0.32-4.0)
[2022-07-28 19:35] VITALS: BP 124/71; PULSE 80; RESP 16; TEMP 37.1; O2SAT 98
== END 2022-07-28 19:35 | disposition home or self-care (01) ==
PROVIDERS: Physician Assistant Medical; Emergency Provider Emergency Medicine; PCP Family Medicine
DX: J02.9 Acute pharyngitis, unspecified (principal); Z20.822 Contact with and (suspected) exposure to COVID-19; Z20.828 Contact with and (suspected) exposure to other viral communicable diseases; B20 Human immunodeficiency virus [HIV] disease; F12.90 Cannabis use, unspecified, uncomplicated; Z79.899 Other long term (current) drug therapy
CPT/HCPCS: 0241U; 36415; 76536; 80053; 83735; 84443; 85025; 87651; 99283; 99284

== ENCOUNTER 2022-08-12 10:30 | Outpatient (REF) | payer OTHER, SELFPAY ==
[2022-08-12 13:27] LABS: MANUAL DIFF FLAG NO
[2022-08-12 13:36] LABS: Basophils Absolute Auto 0.1 X10*3/uL (0.0-0.2); Basophils Percent Auto 0.7 % (0-2); Eosinophils Absolute Auto 0.1 X10*3/uL (0.0-0.4); Eosinophils Percent Auto 1.4 % (0-4); Hematocrit 44.1 % (42.0-52.0); Hemoglobin 14.8 g/dl (14.0-18.0); Imm Gran Abs Auto 0.02 X10*3/uL (0.00-0.03); Imm Gran Pct Auto 0.3 % (0.0-0.4); Lymphocytes Absolute Auto 2.2 X10*3/uL (1.2-4.9); Lymphocytes Percent Auto 30.9 % (20-40); Mean Corpuscular HGB Conc 33.6 g/dl (31.0-36.0); Mean Corpuscular Hemoglobin 27.6 pg (27.0-33.0); Mean Corpuscular Volume 82.3 fL (80.0-98.0); Mean Platelet Volume 9.3 fL (9.4-12.4); Monocytes Absolute Auto 0.6 X10*3/uL (0.1-1.2); Neutrophils Absolute Auto 4.1 x10*3/uL (2.0-8.3); Neutrophils Percent Auto 58.7 % (45-73); Platelet Count 347 X10*3/uL (160-400); Red Blood Count 5.36 X10*6/uL (4.60-5.80); Red Cell Distribution Width 13.3 % (11.0-16.0)
[2022-08-12 14:15] LABS: Amylase 51 U/L (28-100); Lipase 14 U/L (8-78)
== END 2022-08-12 10:31 | disposition home or self-care (01) ==
LOC: HO.HMGCLDS 10:30
PROVIDERS: PCP Hospitalist; Visit Provider Physician Assistant Medical
DX: R10.13 Epigastric pain (principal)
CPT/HCPCS: 36415; 82150; 83690; 85025

== ENCOUNTER 2022-08-13 07:00 | Emergency (ER) | payer OTHER, SELFPAY ==
[2022-08-13 07:43] VITALS: BP 132/79; PULSE 76; RESP 16; TEMP 35.8; O2SAT 98; BMI 33.5
[2022-08-13 08:43] VITALS: BP 115/78; PULSE 75; RESP 18; TEMP 36.7; O2SAT 97
--- NOTE | 2022-08-13 09:06 | ED_ITS ---
HPI - General Adult General Chief complaint: General Medical Stated complaint: STD testing/Multiple complaints Time Seen by Provider: 08/13/22 08:55 Source: patient Mode of arrival: ambulatory Limitations: no limitations History of Present Illness HPI narrative: Patient is a 32 year old assigned male at with a history of HIV presenting to the emergency department today after being exposed to STIs. Patient states that he was exposed to gonorrhea and trich. Patient states that he was also having epigastric pain but he was prescribed omeprazole yesterday. Patient states that he does not have a GI specialist. Patient denies any dizziness, lightheadedness, abdominal pain, nausea, vomiting, fever, chills, blurry vision, double vision, loss of vision, chest pain, difficulty breathing, shortness of breath, back pain, night sweats, pain with urination, increased urinary frequency, increased urinary urgency, blood in his urine or stool, syncope or a near syncopal episode, recent trauma or falls, bowel incontinence, bladder incontinence, bowel retention, bladder retention, or any other complaints at this time. Severity scale (1-10): 1 Relieving factors: none Exacerbating factors: none Associated symptoms: denies other symptoms Treatments prior to arrival: none Related Data Home Medications Medication Instructions Recorded Confirmed Bacillus coagulans 10 billion cell cell PO 12/05/21 03/23/22 capsule,delayed release (Probiotic (B. coagulans)) bictegravir 50 mg-emtricitabine 1 tab PO DAILY 03/23/22 03/23/22 200 mg-tenofovir alafenam 25 mg tablet (Biktarvy) Previous Rx's Medication Instructions Recorded ciprofloxacin HCl 500 mg tablet 500 mg PO BID 5 days #10 tabs 08/12/22 omeprazole 20 mg capsule,delayed 20 mg PO BID 2 weeks #28 caps 08/12/22 release doxycycline hyclate 100 mg tablet 100 mg PO BID 7 days #14 tabs 08/13/22 metronidazole 500 mg tablet 500 mg PO BID 7 days #14 tabs 08/13/22 Allergies Allergy/AdvReac Type Severity Reaction Status Date / Time No Known Allergies Allergy Verified 08/13/22 07:48 Review of Systems Constitutional: Constitutional: Reports no additional constitutional complaints, Denies chills, Denies fever(s) and Denies night sweats Eyes: Eyes: Reports no additional eye complaints, Denies blurry vision, Denies change in vision, Denies diplopia, Denies eye discharge, Denies loss of vision and Denies eye pain ENT: Denies dizziness Cardiovascular: Cardiovascular: Reports no additional cardiovascular complaints, Denies chest pain, Denies lightheadedness, Denies Loss of Consciousness and Denies dyspnea Respiratory: Respiratory: Reports no additional respiratory complaints and Denies dyspnea Gastrointestinal: Gastrointestinal: Reports no additional gastrointestinal complaints, Denies abdominal pain, Denies melena, Denies hematochezia, Denies change in bowel habits and Denies change in stool character Genitourinary: Genitourinary: Reports no additional male genitourinary complaints, Denies hematuria, Denies oliguria, Denies difficulty urinating, Denies dysuria, Denies urinary frequency, Denies urinary hesitancy, Denies urinary incontinence and Denies urinary urgency Musculoskeletal: Musculoskeletal: Reports no additional musculoskeletal complaints, Denies numbness and Denies tingling Neurologic: Denies dizziness, Denies loss of vision, Denies numbness and Denies tingling Psychiatric: Psychiatric: Reports no additional psychiatric complaints Endocrine: Endocrine: Reports no additional endocrine complaints Hematologic/Lymphatic: Hematologic/Lymphatic: Reports no additional hematologic/lymphatic complaints Allergic/Immunologic: Allergic/Immunologic: Reports no additional allergic/immunologic complaints [facility] Past Medical History Attestation statement: The following information was validated with the patient. 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 ) Current occupational status: employed and student Current occupation: [employer], rt [employer] Cognitive needs: No Hearing needs: No Vision needs: No Physical Exam ED Vital Signs: Vital Signs - 24 hr 08/13/22 07:43 08/13/22 08:43 Temperature 96.5 F L 98.0 F Pulse Rate 76 75 Respiratory Rate 16 18 Blood Pressure 132/79 115/78 Pulse Oximetry 98 97 Oxygen Delivery Method Room Air Room Air BMI result Body Mass Index 33.5 Const General: cooperative, no acute distress, alert and awake Nutritional Appearance: well nourished Orientation/consciousness: patient oriented x3 Limitations: no limitations HENMT Head: Yes normal to inspection and Yes atraumatic Ears: hearing grossly normal bilaterally and external ears normal General nose exam: Normal external nose present, no nasal discharge noted and no epistaxis Face and sinus: Yes normal facial exam, No abrasion and No laceration Mouth: Normal oral and palatal mucosa present, no drooling and no muffled voice Eyes General: appearance normal, both eyes and all related structures Periorbital: periorbital findings normal Eyelids: Yes eyelids normal Conjunctivae: conjunctivae normal Pupils: Equal, round and reactive pupils present EOM: EOMs intact bilaterally Neck Neck: Yes normal visual inspection, Yes full ROM and Yes no lymphadenopathy Chest Chest palpation & inspection: normal inspection of the chest Resp Effort & Inspection: normal respiratory effort and able to speak in complete sentences Auscultation: clear to auscultation bilaterally Cardio Rate: regular rate Rhythm: regular rhythm GI Inspection: Yes normal to inspection Palpation (GI): Soft to palpation, not firm, nontender, no guarding and not rigid Neuro General: patient oriented x3 and moves all extremities Cranial nerves: Yes Equal, round and reactive pupils present Cognition (Neuro): normal cognition Motor exam (neuro): 5/5 motor strength present throughout Sensory Exam: Normal double simultaneous stimulation for sensation Coordination: [id number] test normal Extrem General: Yes normal to inspection, Yes full ROM and Yes capillary refill normal Psych Appearance: grossly normal Mental Status: mental status grossly normal Affect: normal affect Attitude: cooperative Thought process: Normal thought process present Thought content: Normal thought content present Insight: Good insight present (Psych) Medical Decision Making Medical Decision Making MDM Narrative: Patient is a 32 year old assigned male at with a history of HIV, currently medicated, presenting to the emergency department today after exposure to STIs. Patient's physical exam was unremarkable. Patient's urine is pending at this time. I explained my physical exam findings to the patient. I answered all questions asked by the patient. I stressed the importance of the patient taking his medication as prescribed. I stressed the importance of the patient following up with his primary care provider and a GI Specialist for his recent GERD diagnosis. I stressed the importance of the patient returning to the emergency department immediately if his symptoms were to worsen or if he were to develop any dizziness, shortness of breath, difficulty breathing, chest pain, blurry vision, loss of vision, nausea, vomiting, abdominal pain, fever, chills, back pain, or any other complaints. Patient verbalized agreement and understanding with this treatment plan and discharge. Differential Diagnosis Differential Diagnoses: The differential diagnosis associated with the presentation includes STI exposure, GERD Discharge Plan Discharge Clinical Impression: STI (sexually transmitted infection), GERD (gastroesophageal reflux disease) Patient Disposition: Home, Self-Care Instructions: Sexually Transmitted Diseases (ED) Additional Instructions: Follow up with your primary care provider. Return to the emergency department immediately if your symptoms worsen or if you develop any dizziness, shortness of breath, difficulty breathing, chest pain, blurry vision, loss of vision, nausea, vomiting, abdominal pain, fever, chills, back pain, or any other complaints. Prescriptions: New metronidazole 500 mg tablet 500 mg PO BID 7 Days Qty: 14 0RF doxycycline hyclate 100 mg tablet 100 mg PO BID 7 Days Qty: 14 0RF No Action omeprazole 20 mg capsule,delayed release(DR/EC) 20 mg PO BID 14 Days Qty: 28 0RF ciprofloxacin HCl 500 mg tablet 500 mg PO BID 5 Days Qty: 10 0RF Probiotic (B. coagulans) 10 billion cell capsule,delayed release(DR/EC) PO Biktarvy 50-200-25 mg tablet 1 tab PO DAILY Referrals: [facility] [place] [Provider Group] (Call to establish and follow up with a GI specialist.) Amos Oliver MD [Primary Care Provider] - Print Language: Hebrew
[2022-08-13] MEDS: cefTRIAXone sodium 500 MG, Lidocaine HCl 1 % MPF 1 ML IM (09:57)
[2022-08-13 10:09] LABS: Appearance Urine Clear; Color Urine Yellow; Glucose Urine UA Negative (Negative); Leukocyte Esterase Urine Trace (Negative); Nitrite Urine Negative (Negative); PH 5.5 (5.0-9.0); UMIC TRIGGER UACC YES; Urine Blood Negative (Negative); Urine Ketones Negative (Negative); Urine Protein Negative (Neg-Trace)
[2022-08-13 10:22] LABS: Bacteria Urine None Seen (None Seen); Hyaline Casts Urine 0-2 /LPF (0-2); RBC Urine 0-2 /HPF (0-2); Squamous Epithelial Cell Urine 0-2 /HPF (0-2); WBC Urine 0-5 /HPF (0-5)
[2022-08-13 13:06] LABS: CT PCR NOT DETECTED (Not Detect.); NG PCR NOT DETECTED (Not Detect.)
== END 2022-08-13 10:30 | disposition home or self-care (01) ==
PROVIDERS: Physician Assistant Medical; Emergency Provider Emergency Medicine Emergency Medical Services; PCP Family Medicine
DX: A64 Unspecified sexually transmitted disease (principal); K21.9 Gastro-esophageal reflux disease without esophagitis; Z79.899 Other long term (current) drug therapy
CPT/HCPCS: 0353U; 81001; 99283; J0696

== ENCOUNTER 2022-11-04 20:34 | Emergency (ER) | payer OTHER, SELFPAY ==
--- NOTE | 2022-11-04 20:37 | ECG_ITS ---
Test Reason : LEG TENDERNESS Blood Pressure : / mmHG Vent. Rate : 084 BPM Atrial Rate : 084 BPM P-R Int : 162 ms QRS Dur : 088 ms QT Int : 350 ms P-R-T Axes : 051 -07 017 degrees QTc Int : 413 ms Normal sinus rhythm Normal ECG When compared with ECG of 25-SEP-2021 17:23, No significant change was found Referred By: Vicki Moss Electronically Signed By:YOVANY BHAT MD
--- NOTE | 2022-11-04 20:37 | ED.LOWEXIN ---
HPI - Extremity Injury (Lower) General Chief Complaint: Extremity Problem <CLAIRE Emmanuel - Last Filed: 11/04/22 20:40> Stated Complaint: leg tenderness, traveling a lot <CLAIRE Emmanuel - Last Filed: 11/04/22 20:40> Time Seen by Provider: 11/04/22 23:10 <CLAIRE Emmanuel - Last Filed: 11/04/22 20:40> Source: patient <Lizette Llanos MD - Last Filed: 11/05/22 00:47> Mode of arrival: ambulatory <Lizette Llanos MD - Last Filed: 11/05/22 00:47> History of Present Illness HPI Narrative: 32-year-old male presents with concerns for thigh discomfort as well as cramping in bilateral calf since states he has been driving significant distance back and forth to [place] and also reports some shortness of breath. Otherwise denies any fevers or chills or urinary symptoms and is currently on Biktarvy, Claritin, Flonase. Patient does report a family history of clots in his mother. And is himself concerned about the possibility of DVT. <Lizette Llanos MD - Last Filed: 11/05/22 00:47> Related Data Home Medications: Home Medications Medication Instructions Recorded Confirmed Bacillus coagulans 10 billion cell cell PO 12/05/21 03/23/22 capsule,delayed release (Probiotic (B. coagulans)) bictegravir 50 mg-emtricitabine 1 tab PO DAILY 03/23/22 03/23/22 200 mg-tenofovir alafenam 25 mg tablet (Biktarvy) Previous Rx's Medication Instructions Recorded ciprofloxacin HCl 500 mg tablet 500 mg PO BID 5 days #10 tabs 08/12/22 omeprazole 20 mg capsule,delayed 20 mg PO BID 2 weeks #28 caps 08/12/22 release doxycycline hyclate 100 mg tablet 100 mg PO BID 7 days #14 tabs 08/13/22 metronidazole 500 mg tablet 500 mg PO BID 7 days #14 tabs 08/13/22 <CLAIRE Emmanuel - Last Filed: 11/04/22 20:40> Allergies/Adverse Reactions: Allergies Allergy/AdvReac Type Severity Reaction Status Date / Time No Known Allergies Allergy Verified 08/13/22 07:48 <CLAIRE Emmanuel - Last Filed: 11/04/22 20:40> Review of Systems Review of Systems: Pertinent positives and negatives as stated in HPI <Lizette Llanos MD - Last Filed: 11/05/22 00:47> PMFSH Past Medical History Source: nursing notes reviewed <Lizette Llanos MD - Last Filed: 11/05/22 00:47> Medical History: Medical History Flank pain HIV (human immunodeficiency virus infection) <CLAIRE Emmanuel - Last Filed: 11/04/22 20:40> Social History Social History: Social History Housing: House Alcohol intake: never Patient Tobacco Use Status: Never used Tobacco e-Cigarette/Vaping Use: Never Used Second Hand Smoke Exposure: No Substance Use Type: Marijuana Advance Directives: No Advance Directives Information Provided: No 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 ) Current occupational status: employed and student Current occupation: [employer], rt [employer] Cognitive needs: No Hearing needs: No Vision needs: No <CLAIRE Emmanuel - Last Filed: 11/04/22 20:40> Physical Exam Vital Signs: Vital Signs: Last Vital Signs Temp 97.8 F 11/04/22 23:25 Pulse 74 11/04/22 23:25 Resp 14 11/04/22 23:25 BP 115/61 11/04/22 23:25 Pulse Ox 96 11/04/22 23:25 O2 Del Method Room Air 11/04/22 23:25 BMI result Body Mass Index 32.8 <CLAIRE Emmanuel - Last Filed: 11/04/22 20:40> Vital Signs: Last Vital Signs Temp 97.8 F 11/04/22 23:25 Pulse 74 11/04/22 23:25 Resp 14 11/04/22 23:25 BP 115/61 11/04/22 23:25 Pulse Ox 96 11/04/22 23:25 O2 Del Method Room Air 11/04/22 23:25 BMI result Body Mass Index 32.8 VITAL SIGNS: Reviewed. GENERAL: Well developed, well nourished, in no acute distress. HEAD: Normocephalic/atraumatic EYES: PERRLA, EOMI EARS: Ext canals without abnormality NOSE: Nares patent bilateral OROPHARYNX: no oral lesions noted, posterior pharynx clear NECK: Supple, no adenopathy LUNGS: Normal breath sounds. No adventitious sounds or accessory muscle use. SpO2<96> CARDIOVASCULAR: Regular rate and rhythm without noted murmurs ABDOMEN: Soft, non-tender, non-distended with bowel sounds. MUSCULOSKELETAL: No tenderness, deformities, or effusions noted on gross inspection. EXTREMITIES: No cyanosis, clubbing or edema, bilateral calves with soft compartments. SKIN: Inspection of the skin reveals no rashes NEUROLOGIC: Alert and oriented x 4. Strength and sensation to light touch were grossly intact x 4. <Lizette Llanos MD - Last Filed: 11/05/22 00:47> Course Course Course Narrative: RME: 32yo M w/PMHx HIV, presenting to the ED complaining of bilateral leg soreness/cramping, and intermittent SOB/CP. Admits has been traveling a lot for work, driving to [place] and [place]. Reports occasional cigarette smoking/vaping. Denies pitting edema No appreciable pitting edema, vital signs stable, no calf tenderness EKG, labs including D-dimer and CPK ordered Full HPI, ROS and PE to be performed by primary ED provider. <CLAIRE Emmanuel - Last Filed: 11/04/22 20:40> Medical Decision Making Medical Decision Making MDM Narrative: 32-year-old male with history and clinical presentation after review of all investigations my interpretation is he may be suffering from some mild volume depletion as there is no evidence to suggest infection, anemia, there are no derangements electrolytes <Lizette Llanos MD - Last Filed: 11/05/22 00:47> Differential Diagnosis Please see the discussion above <Lizette Llanos MD - Last Filed: 11/05/22 00:47> Lab Data Please see the discussion above <Lizette Llanos MD - Last Filed: 11/05/22 00:47> Result Diagrams: 11/04/22 21:05 11/04/22 21:05 <CLAIRE Emmanuel - Last Filed: 11/04/22 20:40> Labs: Lab Results 05/06/23 05/06/23 05/06/23 Range/Units 21:05 21:05 21:05 WBC 9.3 (4.8-10.8) X10*3/uL RBC 5.06 (4.60-5.80) X10*6/uL Hgb 13.7 L (14.0-18.0) g/dl Hct 42.4 (42.0-52.0) % MCV 83.8 (80.0-98.0) fL MCH 27.1 (27.0-33.0) pg MCHC 32.3 (31.0-36.0) g/dl RDW 13.6 (11.0-16.0) % Plt Count 287 (160-400) X10*3/uL MPV 9.5 (9.4-12.4) fL Immature Gran % (Auto) 0.6 H (0.0-0.4) % Neut % (Auto) 54.8 (45-73) % Lymph % (Auto) 31.1 (20-40) % [place] % (Auto) 9.9 (2-11) % Eos % (Auto) 2.6 (0-4) % Baso % (Auto) 1.0 (0-2) % Lymph # (Auto) 2.9 (1.2-4.9) X10*3/uL [place] # (Auto) 0.9 (0.1-1.2) X10*3/uL Eos # (Auto) 0.2 (0.0-0.4) X10*3/uL Baso # (Auto) 0.1 (0.0-0.2) X10*3/uL Abs Immat Gran (auto) 0.06 H (0.00-0.03) X10*3/uL Absolute Neuts (auto) 5.1 (2.0-8.3) x10*3/uL Absolute Nucleated RBC 0.000 (0.0-0.012) X10*3/uL Nucleated RBC % (auto) 0.0 (0.0-0.2) /100WBC D-Dimer High Sensitivty < 150 NG/ML Sodium (135-145) mmol/L Potassium (3.3-5.1) mmol/L Chloride (96-108) mmol/L Carbon Dioxide (22-29) mmol/L Anion Gap (12-20) BUN (9-16) mg/dL Creatinine (0.5-1.4) mg/dL Estim Creat Clear Calc Estimated GFR Random Glucose (60-115) mg/dL Calcium (8.4-10.2) mg/dL Total Creatine Kinase (38-174) U/L Troponin I High Sens (<3.5-35.0) ng/L B-Natriuretic Peptide 20 (<100) pg/mL 11/04/22 11/04/22 Range/Units 21:05 21:05 WBC (4.8-10.8) X10*3/uL RBC (4.60-5.80) X10*6/uL Hgb (14.0-18.0) g/dl Hct (42.0-52.0) % MCV (80.0-98.0) fL MCH (27.0-33.0) pg MCHC (31.0-36.0) g/dl RDW (11.0-16.0) % Plt Count (160-400) X10*3/uL MPV (9.4-12.4) fL Immature Gran % (Auto) (0.0-0.4) % Neut % (Auto) (45-73) % Lymph % (Auto) (20-40) % Durham % (Auto) (2-11) % Eos % (Auto) (0-4) % Baso % (Auto) (0-2) % Lymph # (Auto) (1.2-4.9) X10*3/uL [place] # (Auto) (0.1-1.2) X10*3/uL Eos # (Auto) (0.0-0.4) X10*3/uL Baso # (Auto) (0.0-0.2) X10*3/uL Abs Immat Gran (auto) (0.00-0.03) X10*3/uL Absolute Neuts (auto) (2.0-8.3) x10*3/uL Absolute Nucleated RBC (0.0-0.012) X10*3/uL Nucleated RBC % (auto) (0.0-0.2) /100WBC D-Dimer High Sensitivty NG/ML Sodium 140 (135-145) mmol/L Potassium 4.1 (3.3-5.1) mmol/L Chloride 106 (96-108) mmol/L Carbon Dioxide 26 (22-29) mmol/L Anion Gap 12 (12-20) BUN 17 H (9-16) mg/dL Creatinine 0.79 (0.5-1.4) mg/dL Estim Creat Clear Calc 155.1 Estimated GFR > 60 Random Glucose 87 (60-115) mg/dL Calcium 9.2 (8.4-10.2) mg/dL Total Creatine Kinase 66 (38-174) U/L Troponin I High Sens < 2.7 (<3.5-35.0) ng/L B-Natriuretic Peptide (<100) pg/mL <CLAIRE Emmanuel - Last Filed: 11/04/22 20:40> Lab Results 11/04/22 11/04/22 11/04/22 Range/Units 21:05 21:05 21:05 WBC 9.3 (4.8-10.8) X10*3/uL RBC 5.06 (4.60-5.80) X10*6/uL Hgb 13.7 L (14.0-18.0) g/dl Hct 42.4 (42.0-52.0) % MCV 83.8 (80.0-98.0) fL MCH 27.1 (27.0-33.0) pg MCHC 32.3 (31.0-36.0) g/dl RDW 13.6 (11.0-16.0) % Plt Count 287 (160-400) X10*3/uL MPV 9.5 (9.4-12.4) fL Immature Gran % (Auto) 0.6 H (0.0-0.4) % Neut % (Auto) 54.8 (45-73) % Lymph % (Auto) 31.1 (20-40) % [place] % (Auto) 9.9 (2-11) % Eos % (Auto) 2.6 (0-4) % Baso % (Auto) 1.0 (0-2) % Lymph # (Auto) 2.9 (1.2-4.9) X10*3/uL [place] # (Auto) 0.9 (0.1-1.2) X10*3/uL Eos # (Auto) 0.2 (0.0-0.4) X10*3/uL Baso # (Auto) 0.1 (0.0-0.2) X10*3/uL Abs Immat Gran (auto) 0.06 H (0.00-0.03) X10*3/uL Absolute Neuts (auto) 5.1 (2.0-8.3) x10*3/uL Absolute Nucleated RBC 0.000 (0.0-0.012) X10*3/uL Nucleated RBC % (auto) 0.0 (0.0-0.2) /100WBC D-Dimer High Sensitivty < 150 NG/ML Sodium (135-145) mmol/L Potassium (3.3-5.1) mmol/L Chloride (96-108) mmol/L Carbon Dioxide (22-29) mmol/L Anion Gap (12-20) BUN (9-16) mg/dL Creatinine (0.5-1.4) mg/dL Estim Creat Clear Calc Estimated GFR Random Glucose (60-115) mg/dL Calcium (8.4-10.2) mg/dL Total Creatine Kinase (38-174) U/L Troponin I High Sens (<3.5-35.0) ng/L B-Natriuretic Peptide 20 (<100) pg/mL 11/04/22 11/04/22 Range/Units 21:05 21:05 WBC (4.8-10.8) X10*3/uL RBC (4.60-5.80) X10*6/uL Hgb (14.0-18.0) g/dl Hct (42.0-52.0) % MCV (80.0-98.0) fL MCH (27.0-33.0) pg MCHC (31.0-36.0) g/dl RDW (11.0-16.0) % Plt Count (160-400) X10*3/uL MPV (9.4-12.4) fL Immature Gran % (Auto) (0.0-0.4) % Neut % (Auto) (45-73) % Lymph % (Auto) (20-40) % [place] % (Auto) (2-11) % Eos % (Auto) (0-4) % Baso % (Auto) (0-2) % Lymph # (Auto) (1.2-4.9) X10*3/uL [place] # (Auto) (0.1-1.2) X10*3/uL Eos # (Auto) (0.0-0.4) X10*3/uL Baso # (Auto) (0.0-0.2) X10*3/uL Abs Immat Gran (auto) (0.00-0.03) X10*3/uL Absolute Neuts (auto) (2.0-8.3) x10*3/uL Absolute Nucleated RBC (0.0-0.012) X10*3/uL Nucleated RBC % (auto) (0.0-0.2) /100WBC D-Dimer High Sensitivty NG/ML Sodium 140 (135-145) mmol/L Potassium 4.1 (3.3-5.1) mmol/L Chloride 106 (96-108) mmol/L Carbon Dioxide 26 (22-29) mmol/L Anion Gap 12 (12-20) BUN 17 H (9-16) mg/dL Creatinine 0.79 (0.5-1.4) mg/dL Estim Creat Clear Calc 155.1 Estimated GFR > 60 Random Glucose 87 (60-115) mg/dL Calcium 9.2 (8.4-10.2) mg/dL Total Creatine Kinase 66 (38-174) U/L Troponin I High Sens < 2.7 (<3.5-35.0) ng/L B-Natriuretic Peptide (<100) pg/mL <Lizette Llanos MD - Last Filed: 11/05/22 00:47> Independent Interpretation I performed an independent interpretation of an: EKG <Lizette Llanos MD - Last Filed: 11/05/22 00:47> Interpretation: Normal sinus rhythm, HR-84, no STEMI, WV/QRS/QTC is within normal limits. <Lizette Llanos MD - Last Filed: 11/05/22 00:47> External Record Review External record reviewed: Prior outpatient labs <Lizette Llanos MD - Last Filed: 11/05/22 00:47> Discharge Plan Discharge Clinical Impression: Muscle cramps <CLAIRE Emmanuel - Last Filed: 11/04/22 20:40> Patient Disposition: Home, Self-Care <CLAIRE Emmanuel - Last Filed: 11/04/22 20:40> Instructions: Dehydration (ED), Muscle Cramp (ED) <CLAIRE Emmanuel - Last Filed: 11/04/22 20:40> Additional Instructions: 1. Resume all home medications as prescribed. 2. Recommend that you increase your fluid intake, especially with water. 3. In the cramps persist I would recommend that you follow-up with your primary care provider in the next 1-2 days. Please return to the emergency room for any new or worsening symptoms. <CLAIRE Emmanuel - Last Filed: 11/04/22 20:40> Prescriptions: No Action metronidazole 500 mg tablet 500 mg PO BID 7 Days Qty: 14 0RF doxycycline hyclate 100 mg tablet 100 mg PO BID 7 Days Qty: 14 0RF omeprazole 20 mg capsule,delayed release(DR/EC) 20 mg PO BID 14 Days Qty: 28 0RF ciprofloxacin HCl 500 mg tablet 500 mg PO BID 5 Days Qty: 10 0RF Probiotic (B. coagulans) 10 billion cell capsule,delayed release(DR/EC) PO Biktarvy 50-200-25 mg tablet 1 tab PO DAILY <CLAIRE Emmanuel - Last Filed: 11/04/22 20:40> Referrals: Amos Oliver MD [Primary Care Provider] - <CLAIRE Emmanuel - Last Filed: 11/04/22 20:40>
[2022-11-04 20:38] VITALS: BP 150/88; PULSE 95; RESP 20; TEMP 36.6; O2SAT 98; BMI 32.8
[2022-11-04 21:10] LABS: MANUAL DIFF FLAG NO
[2022-11-04 21:11] LABS: Basophils Absolute Auto 0.1 X10*3/uL (0.0-0.2); Eosinophils Absolute Auto 0.2 X10*3/uL (0.0-0.4); Eosinophils Percent Auto 2.6 % (0-4); Hematocrit 42.4 % (42.0-52.0); Hemoglobin 13.7 g/dl (14.0-18.0); Imm Gran Abs Auto 0.06 X10*3/uL (0.00-0.03); Imm Gran Pct Auto 0.6 % (0.0-0.4); Lymphocytes Absolute Auto 2.9 X10*3/uL (1.2-4.9); Lymphocytes Percent Auto 31.1 % (20-40); Mean Corpuscular HGB Conc 32.3 g/dl (31.0-36.0); Mean Corpuscular Hemoglobin 27.1 pg (27.0-33.0); Mean Corpuscular Volume 83.8 fL (80.0-98.0); Mean Platelet Volume 9.5 fL (9.4-12.4); Monocytes Absolute Auto 0.9 X10*3/uL (0.1-1.2); Monocytes Percent Auto 9.9 % (2-11); Neutrophils Absolute Auto 5.1 x10*3/uL (2.0-8.3); Neutrophils Percent Auto 54.8 % (45-73); Platelet Count 287 X10*3/uL (160-400); Red Blood Count 5.06 X10*6/uL (4.60-5.80); Red Cell Distribution Width 13.6 % (11.0-16.0); White Blood Count 9.3 X10*3/uL (4.8-10.8)
[2022-11-04 21:27] LABS: Anion Gap 12 (12-20); Blood Urea Nitrogen 17 mg/dL (9-16); Calcium 9.2 mg/dL (8.4-10.2); Carbon Dioxide 26 mmol/L (22-29); Chloride 106 mmol/L (96-108); Creatinine Clr Calc Pharmacy 155.1; Estimated Glomerular Filt Rate > 60; Glucose Random 87 mg/dL (60-115); Potassium 4.1 mmol/L (3.3-5.1); Sodium 140 mmol/L (135-145)
[2022-11-04 21:31] LABS: B Type Natriuretic Peptide 20 pg/mL (<100)
[2022-11-04 21:39] LABS: Troponin-I High Sensitivity < 2.7 ng/L (<3.5-35.0)
[2022-11-04 21:46] LABS: D Dimer High Sensitivity < 150 NG/ML
[2022-11-04 23:25] VITALS: BP 115/61; PULSE 74; RESP 14; TEMP 36.6; O2SAT 96
[2022-11-05 01:04] LABS: Magnesium 1.8 mg/dL (1.6-2.6)
== END 2022-11-05 01:36 | disposition home or self-care (01) ==
PROVIDERS: Physician Assistant; Emergency Provider Student in an Organized Health Care Education/Training Program; PCP Family Medicine
DX: R25.2 Cramp and spasm (principal); R06.02 Shortness of breath; M79.605 Pain in left leg; M79.604 Pain in right leg; B20 Human immunodeficiency virus [HIV] disease; F12.90 Cannabis use, unspecified, uncomplicated; Z79.899 Other long term (current) drug therapy
CPT/HCPCS: 36415; 80048; 82550; 83735; 83880; 84484; 85025; 85379; 93005; 99283; 99284

== ENCOUNTER 2022-11-07 13:03 | Outpatient (REF) | payer OTHER, SELFPAY ==
--- NOTE | ~2022-11-07 | US_ITS ---
EXAMINATION: US THYROID CLINICAL INFORMATION: Nontoxic single thyroid nodule. COMPARISON: Ultrasound thyroid 07/28/[address] October 2011. TECHNIQUE: Linear transducer grayscale and color Doppler examination with attention to the region of the thyroid. FINDINGS: SIZE: Measurements of the thyroid lobes and nodules are given in sagittal, anteroposterior and transverse dimensions respectively. Right Thyroid Lobe: 5.7 x 1.8 x 2.2 cm, volume 11.8 mL. Previously 5.4 x 1.8 x 1.7 cm, volume 8.9 mL. Parenchyma: The gland echotexture is homogeneous. Thyroid vascularity is normal. Left Thyroid Lobe: 5.2 x 1.6 x 1.9 cm, volume 8.4 mL. Previously 5.5 x 1.4 x 1.7 cm, volume 6.5 mL. Parenchyma: The gland echotexture is homogeneous. Thyroid vascularity is normal. Isthmus: 0.4 cm in maximum AP dimension. Previously 0.3 cm. Estimated total number of nodules greater than or equal to 1 cm: 0. [employer] nodules are described as follows: 1. Location: Right midpole. Size: 0.4 x 0.2 x 0.2 cm, volume 0.007 mL. Nodule characteristics: Composition: Cystic(0). ACR TI-RADS total points: 0 ACR TI-RADS category: 1 Significant change in size (>/= 20% in 2 dimensions and minimal increase of 2 mm or 50% or greater increase in volume): Change in features: Change in ACR TI-RADS risk category: NODES: There are bilateral cervical lymph nodes. Largest lymph nodes are in the submandibular region and measure 3.1 x 1.1 x 1.6 cm on the right and 2.8 x 1.2 x 1.5 cm on the left. Left submandibular lymph node appears similar to July 2022 exam. US/US thyroid IMPRESSION: Small newly appreciated right thyroid nodule. According to TI RADS criteria, no ultrasound follow-up or aspiration recommended. Bilateral enlarged cervical lymph nodes. Lymph nodes would be amenable to ultrasound-guided fine-needle aspiration if clinically indicated. ACR TI-RADS RECOMMENDATION REFERENCE: Ultrasound-guided fine-needle aspiration, followup ultrasound, no further follow up. * TR1 (0 point) and TR2 (2 points): No FNA or follow up * TR3 (3 points): FNA if more than or equal to 2.5 cm in maximum dimension, followup ultrasound in 1, 3 and 5 years if 1.5 to 2.4 cm in maximum dimension. * TR4 (4-6 points): FNA if more than or equal to 1.5 cm in maximum dimension, followup ultrasound in 1, 2, 3 and 5 years if 1 to 1.4 cm in maximum dimension. * TR5 (more than or equal to 7 points): FNA if more than or equal to 1 cm in maximum dimension, followup ultrasound every year for 5 years if 0.5 to 0.9 cm in maximum dimension. * TR3, TR4 or TR5 nodules that are below the size threshold for follow up receive no follow up.
== END 2022-11-07 13:04 | disposition home or self-care (01) ==
LOC: HO.US 13:03
PROVIDERS: PCP Family Medicine; Visit Provider Family Medicine
DX: E04.1 Nontoxic single thyroid nodule (principal)
CPT/HCPCS: 76536

== ENCOUNTER 2023-03-26 12:22 | Emergency (ER) | payer OTHER, SELFPAY ==
[2023-03-26 13:20] VITALS: BP 143/79; PULSE 77; RESP 18; TEMP 36.3; O2SAT 97; BMI 43.3
--- NOTE | 2023-03-26 13:21 | ED.GENADULT ---
HPI - General Adult General Chief complaint: General Medical Stated complaint: quest std Time Seen by Provider: 03/26/23 17:11 Source: patient Mode of arrival: ambulatory Limitations: no limitations History of Present Illness HPI narrative: Patient is a 32 year old assigned male at with a history of HIV presenting to the emergency department today with exposure to someone who is known positive for Syphilis and Chlamydia. Patient states that he had a recent sexual encounter with an individual who is known to be positive for Syphilis and Chlamydia. Patient denies any dizziness, lightheadedness, abdominal pain, nausea, vomiting, fever, chills, blurry vision, double vision, loss of vision, chest pain, difficulty breathing, shortness of breath, back pain, night sweats, pain with urination, increased urinary frequency, increased urinary urgency, blood in his urine or stool, syncope or a near syncopal episode, recent trauma or falls, bowel incontinence, bladder incontinence, bowel retention, bladder retention, or any other complaints at this time. Relieving factors: none Exacerbating factors: none Treatments prior to arrival: none Related Data Home Medications Medication Instructions Recorded Confirmed bictegravir 50 mg-emtricitabine 1 tab PO DAILY 03/23/22 03/23/22 200 mg-tenofovir alafenam 25 mg tablet (Biktarvy) esomeprazole magnesium 20 mg 20 mg PO DAILY 11/09/22 11/09/22 capsule,delayed release (Nexium) fluticasone propionate 50 1 spray intranasal BID 11/09/22 11/09/22 mcg/actuation nasal spray,suspension loratadine 10 mg tablet (Claritin) 10 mg PO DAILY 11/09/22 11/09/22 Allergies Allergy/AdvReac Type Severity Reaction Status Date / Time No Known Allergies Allergy Verified 12/14/22 16:16 Review of Systems Constitutional: Constitutional: Reports no additional constitutional complaints, Denies chills, Denies fever(s) and Denies night sweats Eyes: Eyes: Reports no additional eye complaints, Denies blurry vision, Denies change in vision, Denies diplopia, Denies eye discharge, Denies loss of vision and Denies eye pain ENT: Denies dizziness Cardiovascular: Cardiovascular: Reports no additional cardiovascular complaints, Denies chest pain, Denies lightheadedness, Denies Loss of Consciousness and Denies dyspnea Respiratory: Respiratory: Reports no additional respiratory complaints and Denies dyspnea Gastrointestinal: Gastrointestinal: Reports no additional gastrointestinal complaints, Denies abdominal pain, Denies melena, Denies hematochezia, Denies change in bowel habits and Denies change in stool character Genitourinary: Genitourinary: Reports no additional male genitourinary complaints, Denies hematuria, Denies oliguria, Denies difficulty urinating, Denies dysuria, Denies urinary frequency, Denies urinary hesitancy, Denies urinary incontinence and Denies urinary urgency Musculoskeletal: Musculoskeletal: Reports no additional musculoskeletal complaints, Denies numbness and Denies tingling Neurologic: Denies dizziness, Denies loss of vision, Denies numbness and Denies tingling Psychiatric: Psychiatric: Reports no additional psychiatric complaints Endocrine: Endocrine: Reports no additional endocrine complaints Hematologic/Lymphatic: Hematologic/Lymphatic: Reports no additional hematologic/lymphatic complaints Allergic/Immunologic: Allergic/Immunologic: Reports no additional allergic/immunologic complaints [facility] Past Medical History Attestation statement: The following information was validated with the patient. Source: old records reviewed and nursing notes reviewed Medical History Cervical lymphadenopathy Lymphadenopathy Enlarged tonsils Back pain Normal physical exam Strep pharyngitis Neck pain Immunization counseling Hematuria Syphilis Homosexuality Flank pain HIV (human immunodeficiency virus infection) Social History Social History Housing: House Alcohol intake: never Patient Tobacco Use Status: Never used Tobacco e-Cigarette/Vaping Use: Never Used Second Hand Smoke Exposure: No Substance Use Type: Marijuana Advance Directives: No Advance Directives Information Provided: Yes 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 [employer] Cognitive needs: No Hearing needs: No Vision needs: No Physical Exam ED Vital Signs: Vital Signs - 24 hr 03/26/23 13:20 Temperature 97.4 F Pulse Rate 77 Respiratory Rate 18 Blood Pressure 143/79 H Pulse Oximetry 97 Oxygen Delivery Method Room Air BMI result Body Mass Index 43.3 Const General: cooperative, no acute distress, alert and awake Nutritional Appearance: well nourished Orientation/consciousness: patient oriented x3 Limitations: no limitations HENMT Head: Yes normal to inspection and Yes atraumatic Ears: hearing grossly normal bilaterally and external ears normal General nose exam: Normal external nose present, no nasal discharge noted and no epistaxis Face and sinus: Yes normal facial exam, No abrasion and No laceration Mouth: Normal oral and palatal mucosa present, no drooling and no muffled voice Eyes General: appearance normal, both eyes and all related structures Periorbital: periorbital findings normal Eyelids: Yes eyelids normal Conjunctivae: conjunctivae normal Pupils: Equal, round and reactive pupils present EOM: EOMs intact bilaterally Neck Neck: Yes normal visual inspection, Yes full ROM and Yes no lymphadenopathy Chest Chest palpation & inspection: normal inspection of the chest Resp Effort & Inspection: normal respiratory effort and able to speak in complete sentences GI Inspection: Yes normal to inspection Neuro General: patient oriented x3 and moves all extremities Cranial nerves: Yes Equal, round and reactive pupils present Cognition (Neuro): normal cognition Motor exam (neuro): 5/5 motor strength present throughout Sensory Exam: Normal double simultaneous stimulation for sensation Coordination: [id number] test normal Extrem General: Yes normal to inspection, Yes full ROM and Yes capillary refill normal Psych Appearance: grossly normal Mental Status: mental status grossly normal Affect: normal affect Attitude: cooperative Thought process: Normal thought process present Thought content: Normal thought content present Insight: Good insight present (Psych) Course Course Course Narrative: RME performed by America Charles PA-C. Patient is a 32 year old assigned male at presenting to the emergency department with exposure to syphilis and chlamydia. Patient is requesting STI screening and treatment. Patient is HIV positive. Labs ordered. Patient placed back in the waiting room pending room availability and results. Medical Decision Making Medical Decision Making MDM Narrative: Patient is a 32 year old assigned male at with a history of HIV presenting to the emergency department today with exposure to Syphilis and Chlamydia. Patient's limited physical exam performed in triage was unremarkable. Patient left the department after providing the appropriate urine and blood samples for testing however, before he received the prophylactic treatment for either Syphilis or Chlamydia. Patient left the department before myself or any of the other emergency department clinicians could review physical exam findings, need or lack there of for further testing, and treatment options / plans. Differential Diagnosis Differential Diagnoses: The differential diagnosis associated with the presentation includes STD exposure Syphilis Chlamyida Discharge Plan Discharge Clinical Impression: Exposure to STD Patient Disposition: Left W/O Completing Treatment Prescriptions: No Action Biktarvy 50-200-25 mg tablet 1 tab PO DAILY fluticasone propionate 50 mcg/actuation spray,suspension 1 spray intranasal BID Rx Instructions: administer into each nostril esomeprazole magnesium [Nexium] 20 mg capsule,delayed release(DR/EC) 20 mg PO DAILY loratadine [Claritin] 10 mg tablet 10 mg PO DAILY Interventions: ED Discharge Assessment Last Done: 03/26/23 17:21 Discharge Date/Time: 03/26/23 17:21
[2023-03-27 04:10] LABS: Syphilis Screen Reactive (Nonreactive)
[2023-03-27 05:19] LABS: CT PCR NOT DETECTED (Not Detect.); NG PCR NOT DETECTED (Not Detect.)
[2023-04-02 12:51] LABS: RPR Quantitative Non-Reactive (Nonreactive); T.Pallidum Particle Agg Test Inconclusive (Nonreactive)
== END 2023-03-26 17:21 | disposition left against medical advice (07) ==
PROVIDERS: Physician Assistant Medical; Emergency Provider Emergency Medicine; PCP Family Medicine
DX: Z20.2 Contact with and (suspected) exposure to infections with a predominantly sexual mode of transmission (principal); B20 Human immunodeficiency virus [HIV] disease
CPT/HCPCS: 0353U; 36415; 86592; 86780; 99282; 99283

== ENCOUNTER 2023-03-27 23:59 | Emergency (ER) | payer OTHER, SELFPAY ==
[2023-03-28 00:04] VITALS: BP 123/86; PULSE 62; RESP 16; TEMP 36.6; O2SAT 96; BMI 37.9
--- NOTE | 2023-03-28 00:24 | ED.GENADULT ---
HPI - General Adult General Chief complaint: General Medical Stated complaint: ?STD check Time Seen by Provider: 03/28/23 00:22 Related Data Home Medications Medication Instructions Recorded Confirmed bictegravir 50 mg-emtricitabine 1 tab PO DAILY 03/23/22 03/23/22 200 mg-tenofovir alafenam 25 mg tablet (Biktarvy) esomeprazole magnesium 20 mg 20 mg PO DAILY 11/09/22 11/09/22 capsule,delayed release (Nexium) fluticasone propionate 50 1 spray intranasal BID 11/09/22 11/09/22 mcg/actuation nasal spray,suspension loratadine 10 mg tablet (Claritin) 10 mg PO DAILY 11/09/22 11/09/22 Allergies Allergy/AdvReac Type Severity Reaction Status Date / Time No Known Allergies Allergy Verified 12/14/22 16:16 [facility] Past Medical History Medical History Cervical lymphadenopathy Lymphadenopathy Enlarged tonsils Back pain Normal physical exam Strep pharyngitis Neck pain Immunization counseling Hematuria Syphilis Homosexuality Flank pain HIV (human immunodeficiency virus infection) Social History Social History Housing: House Alcohol intake: never Patient Tobacco Use Status: Never used Tobacco e-Cigarette/Vaping Use: Never Used Second Hand Smoke Exposure: No Substance Use Type: Marijuana Advance Directives: No Advance Directives Information Provided: No 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 I am prescribing doxycycline 100 mg every 12 hours for 7 days, this will treat chlamydia I am prescribing Flagyl (metronidazole) 2 g (this will either be 4 pills or 8 pills) taken all at once-this will treat Trichomonas. Follow-up your infectious disease specialist for re-evaluation and retesting for HIV and syphilis. You you were seen in the emergency department 12/28/2021 and at that time you were tested for syphilis. - T pallidum antibody was positive (reactive) - T pallidum antigen was inconclusive - RPR was nonreactive This series of tests suggested that you did not have active syphilis at that time but were exposed to syphilis in the past. You were again tested for syphilis on 03/26/2023 in the emergency department -T pallidum antibody was positive ( reactive) -T pallidum antigen is pending -RPR is pending You should follow-up with your infectious disease specialist to determine if you need treatment for syphilis based on the pending results. The treatment for syphilis required a shot of penicillin intermuscular every week for 2-3 weeks, therefore we usually do not give penicillin prophylactically unless you have a documented syphilis infection. Prescriptions: No Action Biktarvy 50-200-25 mg tablet 1 tab PO DAILY fluticasone propionate 50 mcg/actuation spray,suspension 1 spray intranasal BID Rx Instructions: administer into each nostril esomeprazole magnesium [Nexium] 20 mg capsule,delayed release(DR/EC) 20 mg PO DAILY loratadine [Claritin] 10 mg tablet 10 mg PO DAILY
[2023-03-28] MEDS: cefTRIAXone sodium 500 MG, Lidocaine HCl 1 % MPF 1 ML IM (01:28)
--- NOTE | 2023-03-28 01:33 | PC.NURSE ---
pt a&o, no sob or chest pain, provider into to discuss plan of care, pt medicated per mar, Will continue to monitor.
--- NOTE | 2023-03-28 01:48 | PC.NURSE ---
reviewed discharge instructions with pt. pt verbalized understanding, no sign of distress.
--- NOTE | 2023-03-29 02:39 | ED.GENADULT ---
HPI - General Adult General Chief complaint: General Medical Stated complaint: ?STD check Time Seen by Provider: 03/28/23 00:22 Source: patient Mode of arrival: ambulatory Limitations: no limitations History of Present Illness HPI narrative: 32-year-old male who presents to the emergency department for evaluation of STD exposure. The patient was here in the emergency department on 03/26/2023 however due to the high volume in the long wait he did not wait for his result or to be evaluated. The patient is here with his sexual partner will also wants to be evaluated for STDs. The patient states that he was informed by another sexual partner that he may have been exposed to chlamydia and syphilis. The patient is HIV positive and states that his viral load and his CD4 count is greater than 1100. Patient states that he has developed a rash on his wrists and on his chest he is concerned that he may have syphilis. He states he has had syphilis in the past. He has no other symptoms. Related Data Home Medications Medication Instructions Recorded Confirmed bictegravir 50 mg-emtricitabine 1 tab PO DAILY 03/23/22 03/23/22 200 mg-tenofovir alafenam 25 mg tablet (Biktarvy) esomeprazole magnesium 20 mg 20 mg PO DAILY 11/09/22 11/09/22 capsule,delayed release (Nexium) fluticasone propionate 50 1 spray intranasal BID 11/09/22 11/09/22 mcg/actuation nasal spray,suspension loratadine 10 mg tablet (Claritin) 10 mg PO DAILY 11/09/22 11/09/22 Previous Rx's Medication Instructions Recorded doxycycline hyclate 100 mg tablet 100 mg PO Q12H 7 days #14 tabs 03/28/23 metronidazole 500 mg tablet 2,000 mg (4 x 500 mg) PO ONCE 1 03/28/23 day #4 tabs Allergies Allergy/AdvReac Type Severity Reaction Status Date / Time No Known Allergies Allergy Verified 12/14/22 16:16 Review of Systems Review of Systems: Yes all other systems are reviewed and are negative [facility] Past Medical History Medical History Cervical lymphadenopathy Lymphadenopathy Enlarged tonsils Back pain Normal physical exam Strep pharyngitis Neck pain Immunization counseling Hematuria Syphilis Homosexuality Flank pain HIV (human immunodeficiency virus infection) Social History Social History Housing: House Alcohol intake: never Patient Tobacco Use Status: Never used Tobacco Smoked in Last 30 Days: No e-Cigarette/Vaping Use: Never Used Second Hand Smoke Exposure: No Use of substances other than those prescribed or required for medical reasons: No Substance Use Type: Marijuana Advance Directives: No Advance Directives Information Provided: No 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 [employer] Cognitive needs: No Hearing needs: No Vision needs: No Physical Exam ED Vital Signs: BMI result Body Mass Index 37.9 Exam: General: Awake, alert in no distress Head: Normocephalic, atraumatic EENT: PERRL, Lids normal, sclera normal, conjunctiva normal, nose normal , ears normal, throat without erythema or exudates Neck: Supple, no adenopathy, trachea midline and nontender Lung: breath sounds symmetric, no wheezing, rales or rhonchi Chest: symmetric movement, nontender Heart: regular rate and rhythm, normal S1, S2 no murmurs or rubs Abdomen: soft, non-tender, nondistended, normal bowel sounds Back: no vertebral tenderness, no CVAT Skin: Patient does have to small ecchymotic rash is on his left wrist, I do not see any significant rash on the palms of his hands or on his chest Neuro: Awake, alert, oriented, normal speech, cranial nerves intact, moves all extremities symmetrically Psych: Pleasant, cooperative Medications Administered Discontinued Medications Generic Name Dose Route Start Last Admin Trade Name Sanjiv PRN Reason Stop Dose Admin Ceftriaxone Sodium 500 mg/ 0 mg 03/28/23 01:22 03/28/23 01:28 Lidocaine HCl 1 ml IM 03/28/23 01:23 1 kit ONCE ONE Administration Medical Decision Making Medical Decision Making MDM Narrative: 32-year-old male who presents emergency department for evaluation of STD exposure. Patient is HIV positive but his viral load is 0 and he has a high CD4 count. The patient has had syphilis in the past. When the patient was here 2 days prior he did have a syphilis screening panel, chlamydia and gonorrhea testing. The chlamydia and gonorrhea test were negative. The patient's T pallidum antibody was reactive however he has had syphilis in the past and it would be expected that this antibiotic test would be positive. His RPR titer and T pallidum particle antigen is pending. I did discuss these results with the patient and the need to follow-up with his HIV infectious disease doctor determined if he has primary or secondary syphilis based on these pending test results. I told him that we normally do not treat prophylactically for syphilis since it required intermuscular penicillin weekly times 2-3 weeks. Patient understood this discussion and states that he will follow-up with his HIV/infectious disease doctor. The patient was treated prophylactically for gonorrhea with ceftriaxone 500 mg IM with lidocaine, for chlamydia with doxycycline 100 mg q.12 hours x7 days and for Trichomonas 2 g orally x1 dose. I did tell the patient that depending on when he was exposed to syphilis he may need a repeat syphilis panel in 2-4 weeks. Differential Diagnosis Differential Diagnoses: The differential diagnosis associated with the presentation includes Differential diagnosis includes but is not limited to syphilis, gonorrhea, chlamydia, Trichomonas Discharge Plan Discharge Clinical Impression: Encounter for assessment of STD exposure Patient Disposition: Home, Self-Care Instructions: Sexually Transmitted Diseases (ED) Additional Instructions: You received ceftriaxone 500 mg mixed with lidocaine intramuscularly for gonorrhea. I am prescribing doxycycline 100 mg every 12 hours for 7 days, this will treat chlamydia I am prescribing Flagyl (metronidazole) 2 g (this will either be 4 pills or 8 pills) taken all at once-this will treat Trichomonas. Follow-up your infectious disease specialist for re-evaluation and retesting for syphilis. You you were seen in the emergency department 12/28/2021 and at that time you were tested for syphilis. - T pallidum antibody was positive (reactive) - T pallidum antigen was inconclusive - RPR was nonreactive This series of tests suggested that you did not have active syphilis at that time but were exposed to syphilis in the past. You were again tested for syphilis on 03/26/2023 in the emergency department -T pallidum antibody was positive ( reactive) -T pallidum antigen is pending -RPR is pending You should follow-up with your infectious disease specialist to determine if you need treatment for syphilis based on the pending results. The treatment for syphilis required a shot of penicillin intermuscular every week for 2-3 weeks, therefore we usually do not give penicillin prophylactically unless you have a documented syphilis infection. Prescriptions: New metronidazole 500 mg tablet 2,000 mg PO ONCE 1 Days Qty: 4 0RF doxycycline hyclate 100 mg tablet 100 mg PO Q12H 7 Days Qty: 14 0RF No Action Biktarvy 50-200-25 mg tablet 1 tab PO DAILY fluticasone propionate 50 mcg/actuation spray,suspension 1 spray intranasal BID Rx Instructions: administer into each nostril esomeprazole magnesium [Nexium] 20 mg capsule,delayed release(DR/EC) 20 mg PO DAILY loratadine [Claritin] 10 mg tablet 10 mg PO DAILY Interventions: ED Discharge Assessment Last Done: 03/28/23 01:48 Discharge Date/Time: 03/28/23 01:49
== END 2023-03-28 01:49 | disposition home or self-care (01) ==
PROVIDERS: Emergency Provider Emergency Medicine Emergency Medical Services; PCP Family Medicine
DX: Z20.2 Contact with and (suspected) exposure to infections with a predominantly sexual mode of transmission (principal)
CPT/HCPCS: 96372; 99284; J0696

== ENCOUNTER 2023-04-16 09:30 | Outpatient (AMB) | payer OTHER, SELFPAY ==
[2023-04-16 11:23] VITALS: BP 112/80; PULSE 84; TEMP 36.6; O2SAT 98
--- NOTE | 2023-04-16 11:23 | AM.OFFWIN_ITS ---
Intake Vital Signs 04/16/23 11:23 Height 5 ft 8 in BP 112/80 Blood Pressure Location Lt brachial Position Sitting Pulse 84 Pulse Source Pulse Oximeter Temp 97.8 F Temp Source Temporal Artery Scan Pulse Oximetry (%) 98 Intake Visit Reasons: EP, fatigue, diarrhea, sob (masked) Intake Note: pt is here c/o fatigue, diarrhea, sob Patient Tobacco Use Status: Never used Tobacco Allergies No Known Allergies Allergy (Verified 04/16/23 11:43) Medication List - Last Reconciled 04/16/23 by Franklin Plummer MD [id number] ala 50-200-25 mg (Biktarvy) 1 tab PO DAILY esomeprazole magnesium (Nexium) 20 mg PO DAILY fluticasone propionate 50 mcg/actuation 1 spray intranasal BID loratadine (Claritin) 10 mg PO DAILY Do you need a note to return to daycare/school/sports/work: Yes HPI EP, fatigue, diarrhea, sob (masked) HPI Details 32-year-old male presents to the office for a sick visit. Patient is complaining of diarrhea and stomach discomfort for the past 5 days. 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 He returned home on Sunday last. He is HIV positive since age 20. Has been taking his antiviral medications and no new changes have been made to it. Patient is complaining of loose stool, occasional cramp in his in the past few days. He is also complaining of respiratory symptoms including running nose, congestion and headache. Tested negative for COVID. [facility] Medical History Cervical lymphadenopathy Lymphadenopathy Enlarged tonsils Back pain Normal physical exam Strep pharyngitis Neck pain Immunization counseling Hematuria Syphilis Homosexuality Flank pain HIV (human immunodeficiency virus infection) Social History Housing: House Alcohol intake: never Patient Tobacco Use Status: Never used Tobacco e-Cigarette/Vaping Use: Never Used Second Hand Smoke Exposure: No Substance Use Type: Marijuana 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 [employer] Cognitive needs: No Hearing needs: No Vision needs: No Physical Exam Vital Signs: Last Vital Signs Temp 97.8 F 04/16/23 11:23 Pulse 84 04/16/23 11:23 BP 112/80 04/16/23 11:23 Pulse Ox 98 04/16/23 11:23 Const General: cooperative and healthy appearing Nutritional Appearance: well nourished Orientation/consciousness: patient oriented x3 Limitations: no limitations HEENT Head: Yes normal to inspection Eyes General: appearance normal, both eyes and all related structures Neck Neck: Yes normal visual inspection Chest Chest palpation & inspection: normal palpation of entire chest wall Resp Effort & Inspection: normal respiratory effort Neuro General: patient oriented x3 Assessment & Plan Assessment & Plan (1) Diarrhea: Code(s): R19.7 - Diarrhea, unspecified Qualifiers: Diarrhea type: infectious Qualified Code(s): A09 - Infectious gastroenteritis and colitis, unspecified Plan: Self-limiting illness. Patient was tested for RSV and influenza. Note for work given. Blood work ordered to rule out hepatitis. Orders: Orders Complete Blood Count no Diff Today R19.7 - Diarrhea, unspecified SARS-CoV2/FLU/RSV Today R43.9 - Unspecified disturbances of smell and taste Basic Metabolic Panel Today R19.7 - Diarrhea, unspecified Liver Panel Today R19.7 - Diarrhea, unspecified Thyroid Stimulating Hormone Today R19.7 - Diarrhea, unspecified Coding Level of Care Code Est Pt Level 3 (65936) Diagnoses Diarrhea of infectious origin A09 Diarrhea type: infectious
== END 2023-04-16 12:12 | disposition home or self-care (01) ==
PROVIDERS: PCP Family Medicine; Visit Provider Internal Medicine
DX: A09 Infectious gastroenteritis and colitis, unspecified (principal)
CPT/HCPCS: 99213

== ENCOUNTER 2023-04-16 11:39 | Outpatient (REF) | payer OTHER, SELFPAY ==
[2023-04-16 13:24] LABS: Hematocrit 45.9 % (42.0-52.0); Hemoglobin 14.9 g/dl (14.0-18.0); Mean Corpuscular HGB Conc 32.5 g/dl (31.0-36.0); Mean Corpuscular Hemoglobin 27.3 pg (27.0-33.0); Mean Corpuscular Volume 84.1 fL (80.0-98.0); Mean Platelet Volume 9.7 fL (9.4-12.4); Platelet Count 291 X10*3/uL (160-400); Red Blood Count 5.46 X10*6/uL (4.60-5.80); Red Cell Distribution Width 13.1 % (11.0-16.0)
[2023-04-16 13:49] LABS: Alanine Aminotransferase 39 U/L (0-40); Albumin Level 4.5 g/dL (3.5-5.0); Alkaline Phosphatase 86 U/L (39-117); Anion Gap 13 (12-20); Aspartate Amino Transferase 26 U/L (5-37); Bilirubin Direct 0.2 mg/dL (0.0-0.5); Bilirubin Total 0.3 mg/dL (0.0-1.0); Blood Urea Nitrogen 12 mg/dL (9-16); Calcium 9.5 mg/dL (8.4-10.2); Carbon Dioxide 25 mmol/L (22-29); Chloride 104 mmol/L (96-108); Estimated Glomerular Filt Rate > 60; Glucose Random 82 mg/dL (60-115); Potassium 4.2 mmol/L (3.3-5.1); Sodium 138 mmol/L (135-145)
[2023-04-16 14:06] LABS: Thyroid Stimulating Hormone 2.11 uIU/mL (0.32-4.0)
[2023-04-16 14:15] LABS: Influenza A PCR NEGATIVE (Negative); Influenza B PCR NEGATIVE (Negative); Resp Syncy Virus RNA Qual PCR NEGATIVE (Negative); SARS COV2 PCR INHOUSE NEGATIVE (Negative)
== END 2023-04-16 11:40 | disposition home or self-care (01) ==
LOC: HO.HMGCLDS 11:39
PROVIDERS: PCP Family Medicine; Visit Provider Internal Medicine
DX: R19.7 Diarrhea, unspecified (principal); R43.9 Unspecified disturbances of smell and taste; Z11.52 Encounter for screening for COVID-19
CPT/HCPCS: 0241U; 36415; 80048; 80076; 84443; 85027

== ENCOUNTER 2023-10-29 14:45 | Outpatient (AMB) | payer OTHER, MEDICAID, SELFPAY ==
[2023-10-29 15:42] VITALS: BP 122/86; PULSE 93; TEMP 36.6; O2SAT 96; BMI 38.4
--- NOTE | 2023-10-29 15:42 | MHC.OFFWIV ---
Intake Vital Signs 10/29/23 15:42 Height 5 ft 8 in Weight 252 lb 6 oz BMI 38.4 BP 122/86 Blood Pressure Location Lt brachial Position Sitting Pulse 93 Pulse Source Pulse Oximeter Temp 97.8 F Temp Source Temporal Artery Scan Pulse Oximetry (%) 96 Oxygen Delivery Method Room Air Intake Visit Reasons: EP Cough, congestion Intake Note: Pt presents to the office today for c/o cough,congestion,sinus pressure that has been going on for about a week. 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 Has been taking OTC medications with some improvement Called out sick from work, requesting return to work note for 11/01/2023 [facility] Medical History Cervical lymphadenopathy Lymphadenopathy Enlarged tonsils Back pain Normal physical exam Strep pharyngitis Neck pain Immunization counseling Hematuria Syphilis Homosexuality Flank pain HIV (human immunodeficiency virus infection) Social History Housing: House Alcohol intake: never Patient Tobacco Use Status: Never used Tobacco e-Cigarette/Vaping Use: Never Used Second Hand Smoke Exposure: No Substance Use Type: Marijuana 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 Answers questions appropriately. Fully engaged in examination. Skin: warm, dry, intact HEENT: TMs intact bilaterally, no redness. Posterior pharynx without erythema or exudate. Sclera without icterus or injection. Cardiac: External chest normal in appearance. Respiratory: +cough. LSCTAB. Abdomen: without gross distension. Neurological: Oriented to person, place, time and situation. Thought process intact. Psychiatric: Appropriate mood and affect. Good judgment and insight. Assessment & Plan Assessment & Plan (1) URI (upper respiratory infection): Code(s): J06.9 - Acute upper respiratory infection, unspecified Plan URI, no abx warranted. Benzonatate 100mg po bid as needed Rest, drink plenty of fluids, tylenol or motrin as needed. Recommend taking OTC nasal decongestants Return to work note given Follow up with pcp or in clinic for any new or worsening symptoms. Go to ER for shortness of breath, chest pain, palpitations, weakness, dizziness. Medications: New benzonatate 100 mg PO BID PRN 20 caps 0RF cough Coding Level of Care Code Est Pt Level 3 (82752) Diagnoses URI (upper respiratory infection) J06.9
== END 2023-10-29 16:46 | disposition home or self-care (01) ==
PROVIDERS: PCP Family Medicine; Visit Provider Registered Nurse Emergency
DX: J06.9 Acute upper respiratory infection, unspecified (principal)
CPT/HCPCS: 99213

== ENCOUNTER 2024-07-17 02:31 | Emergency (ER) | payer OTHER, MEDICAID, SELFPAY ==
--- NOTE | 2024-07-17 | ECG_ITS ---
Test Reason : tachy Blood Pressure : */* mmHG Vent. Rate : 117 BPM Atrial Rate : 117 BPM P-R Int : 148 ms QRS Dur : 90 ms QT Int : 292 ms P-R-T Axes : 47 -24 19 degrees QTcB Int : 407 ms Sinus tachycardia Otherwise normal ECG When compared with ECG of 04-Nov-2022 20:50, No significant change was found Referred By: Generic ED Physician Electronically Signed By: Hernandez Hickey
[2024-07-17 03:18] VITALS: BP 125/95; PULSE 134; RESP 18; TEMP 36.9; O2SAT 95; BMI 43.3
--- NOTE | 2024-07-17 03:39 | MHC.EDTECH ---
Patient brought into triage area,EKG taken per order and signed by provider,labs,and sars/flu/rsv obtained and sent to lab
[2024-07-17 03:45] LABS: Hematocrit 43.6 % (42.0-52.0); Hemoglobin 14.5 g/dl (14.0-18.0); Mean Corpuscular HGB Conc 33.3 g/dl (31.0-36.0); Mean Corpuscular Hemoglobin 27.7 pg (27.0-33.0); Mean Corpuscular Volume 83.2 fL (80.0-98.0); Mean Platelet Volume 9.3 fL (9.4-12.4); Platelet Count 283 X10*3/uL (160-400); Red Blood Count 5.24 X10*6/uL (4.60-5.80); Red Cell Distribution Width 13.6 % (11.0-16.0); White Blood Count 10.3 X10*3/uL (4.8-10.8)
[2024-07-17 04:09] LABS: Alanine Aminotransferase 30 U/L (0-40); Albumin Level 4.3 g/dL (3.5-5.0); Alkaline Phosphatase 94 U/L (39-117); Anion Gap 12 (12-20); Aspartate Amino Transferase 28 U/L (5-37); Bilirubin Total 0.3 mg/dL (0.0-1.0); Blood Urea Nitrogen 8 mg/dL (9-16); Calcium 9.3 mg/dL (8.4-10.2); Carbon Dioxide 24 mmol/L (22-29); Chloride 107 mmol/L (96-108); Creatinine Clr Calc Pharmacy 121.3; Estimated Glomerular Filt Rate > 60; Glucose Random 102 mg/dL (60-115); Potassium 3.9 mmol/L (3.3-5.1); Sodium 139 mmol/L (135-145); Total Protein 8.1 g/dL (6.5-8.0)
[2024-07-17 04:22] LABS: Influenza A PCR POSITIVE (Negative); Influenza B PCR NEGATIVE (Negative); Resp Syncy Virus RNA Qual PCR NEGATIVE (Negative); SARS COV2 PCR INHOUSE NEGATIVE (Negative)
== END 2024-07-17 06:19 | disposition left against medical advice (07) ==
PROVIDERS: Emergency Provider Emergency Medicine
DX: R50.9 Fever, unspecified (principal); R00.0 Tachycardia, unspecified; Z79.899 Other long term (current) drug therapy; Z03.818 Encounter for observation for suspected exposure to other biological agents ruled out
CPT/HCPCS: 0241U; 80053; 85027; 93005; 99281; 99283

== ENCOUNTER → 2024-07-17 03:30 | Outpatient (BNV) | payer OTHER, MEDICAID, SELFPAY | PROVIDERS: Emergency Provider Emergency Medicine; Visit Provider Internal Medicine Cardiovascular Disease | DX: R00.0 Tachycardia, unspecified (principal) | CPT/HCPCS: 93010 ==

== ENCOUNTER 2024-12-13 09:55 | Outpatient (AMB) | payer OTHER, SELFPAY ==
[2024-12-13 10:27] VITALS: BP 122/86; PULSE 96; TEMP 36.7; O2SAT 97
--- NOTE | 2024-12-13 10:27 | AM.OFFWIN_ITS ---
Intake Vital Signs 12/13/24 10:27 Height 5 ft 3 in BMI Reason not done Patient refused/unable BP 122/86 Blood Pressure Location Lt brachial Position Sitting Pulse 96 Pulse Source Pulse Oximeter Temp 98.1 F Temp Source Oral Pulse Oximetry (%) 97 Oxygen Delivery Method Room Air Intake Visit Reasons: EP Lt foot injury Patient Tobacco Use Status: Never used Tobacco Allergies No Known Allergies Allergy (Verified 12/13/24 11:09) Medication List - Last Reconciled 12/13/24 by Diane Massey [employer]- kievqxgfo-ocnsuile-iwojwio ala 50-200-25 mg (Biktarvy) 1 tab PO DAILY doxycycline hyclate 100 mg PO BID esomeprazole magnesium (Nexium) 20 mg PO DAILY fluticasone propionate 50 mcg/actuation 1 spray intranasal BID loratadine (Claritin) 10 mg PO DAILY valacyclovir 1,000 mg PO DAILY Do you need a note to return to daycare/school/sports/work: No HPI HPI Comments History of Present Illness Details History of Present Illness - The patient is a 34-year-old male pres enting with a left foot injury. - Injury history: First at [employer]L foot got caught under the [employer]. - Started immediately with Foot pain, sw elling, inability to toe walk without discomfort. - [place] better with some time, then was a t the gym, doing n[place]ien split squat, L foot slipped from bench and he landed on the L foot while squatting 110 lbs. - Pain localized to left foot near bunio n. Patient reports pain at 2/10 currently, with increased pain upon pressure and movement. - Initial self-medication with Ibuprofen for swelling which helped pain and swelling. - Potential Ibuprofen and Biktarvy inter action mentioned, therefore only took 1 time. 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 Work note needed. - Planned bunion removal; orthopedic con sultation scheduled, January 06 2025. Review of Systems - Musculoskeletal: Reports pain and swel ling in left foot; localized to bunion area. Denies significant pain without pressure. - General: Denies systemic symptoms. - Neurology: Denies loss of movement in toes. - Foot/Ankle: Reports audible crack duri ng recent injury episode. Denies inability to walk but mentions limping. Physical Exam L foot with great toe bunion, neurovasc intact, no erythema, bruising or edema. Pain w/ palp over bunion area and along the inside dorsum of the foot. Antalgic gait, favoring L side. Ankle FROM, no abnormalities. Results Xrays negative Discussion Notes We discussed the patient's likely diagnosis of a soft tissue injury or possible fracture to the left foot, incited by trauma from recent activities. An X-ray was recommended to examine for potential fractures. While advising against Ibuprofen due to potential interaction with Biktarvy, I recommended the use of Tylenol and Voltaren gel as alternatives for managing pain and inflammation. 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 The necessity of reducing weight-bearing activities and home management through elevation and icing was emphasized. 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 Consent was obtained from the patient for these plans. Assessment and Plan 1. Left foot injury - X-ray of foot and ankle advised. - Neg ative - Pain management with Tylenol and [place] lesley gel. - Rest, ice, elevation recommended. - Work medical leave documentation provi ded. 2. Bunion on left foot - [employer] consultation scheduled for surgical evaluation. - Pain monitoring instructed. 3. Potential drug interaction - Avoid Ibuprofen due to Biktarvy. - Tylenol recommended. Patient Instructions - X-ray of your foot and ankle Negative - Take Tylenol for pain instead of Ibupr ofen. - Use Voltaren gel as directed for swell ing. - Rest, ice, and elevate your foot to re duce swelling. -Results sent via patient portal. Consent Patient was informed and verbally consented to the use of an ambient scribe for clinic note documentation during this visit. Total time spent caring for the patient today was 30 minutes. This includes time spent before the visit reviewing the chart, time spent during the visit, and time spent after the visit on documentation, reviewing laboratory results, diagnostic imaging, medications, performing a medically necessary evaluation, counseling on diagnoses, care coordination, ordering appropriate tests, ordering appropriate medications, review of tests performed by other providers, reporting test results with the patient, communication with other healthcare providers. [facility] Medical History Cervical lymphadenopathy Lymphadenopathy Enlarged tonsils Back pain Normal physical exam Strep pharyngitis Neck pain Immunization counseling Hematuria Syphilis Homosexuality Flank pain HIV (human immunodeficiency virus infection) Social History Housing: House Alcohol intake: never Patient Tobacco Use Status: Never used Tobacco e-Cigarette/Vaping Use: Never Used Second Hand Smoke Exposure: No Substance Use Type: Marijuana 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 [address] XRay Report Signed Patient: Luisito Castellanos MR#: [id number] : 1990 Acct:[id number] Age/Sex: 34 / M ADM Date: 12/13/24 Loc: HO.HMGCX Attending Dr: Diane HERNANDEZ Ordering Physician: Diane Massey Date of Service: 12/13/24 Procedure(s): XR foot LT min 3V Accession Number(s): [id number] cc: Amos Oliver MD; Diane Massey~ CLINICAL HISTORY: S99.922A - Unspecified injury of left foot, initial encounter Exam: AP, lateral, and oblique views of the left foot. Comparison: None. Findings: Moderate to severe hallux valgus with bunion formation. Alignment of the Lisfranc articulation is anatomic. No acute fracture. Moderate-sized os navicularis. Impression: No fracture. This document has been electronically signed by: Tristan Shea MD on 12/13/2024 12:06:25 [facility] [address] [place] [address] [place] [address] XRay Report Signed Patient: Luisito Castellanos MR#: [id number] : 1990 Acct:[id number] Age/Sex: 34 / M ADM Date: 12/13/24 Loc: HO.HMGCX Attending Dr: Diane OMLSTEAD Ordering Physician: Diane Massey Date of Service: 12/13/24 Procedure(s): XR ankle LT 2V Accession Number(s): [id number] cc: Amos Oliver MD; Diane Massey~ CLINICAL HISTORY: S99.922A - Unspecified injury of left foot, initial encounter Exam: AP and mortise views of the left ankle. Comparison: Left foot radiographs from same time. Findings: Bony alignment of the ankle is anatomic. No fracture. Ankle mortise is intact. Impression: No fracture. This document has been electronically signed by: Tristan Shea MD on 12/13/2024 12:06:01 Dictated By: Tristan Shea MD Signed By: <Electronically signed by Tristan Shea MD in OV> 12/13/24 1206 Assessment & Plan Assessment & Plan (1) Injury of left foot: Code(s): S99.922A - Unspecified injury of left foot, initial encounter Qualifiers: Encounter type: initial encounter Qualified Code(s): S99.922A - Unspecified injury of left foot, initial encounter (2) Left ankle injury: Code(s): S99.912A - Unspecified injury of left ankle, initial encounter Qualifiers: Encounter type: initial encounter Qualified Code(s): S99.912A - Unspecified injury of left ankle, initial encounter (3) Bunion of great toe of left foot: Code(s): M21.612 - Bunion of left foot (4) HIV (human immunodeficiency virus infection): Code(s): B20 - Human immunodeficiency virus [HIV] disease Qualifiers: HIV symptom status: asymptomatic, with no history of HIV-related illness Qualified Code(s): Z21 - Asymptomatic human immunodeficiency virus [HIV] infection status Plan . Orders: Orders XR foot LT min 3V Today S99.912A - Unspecified injury of left ankle, initial encounter, S99.922A - Unspecified injury of left foot, initial encounter Coding Level of Care Code Est Pt Level 4 (52009) Diagnoses Injury of left foot, initial encounter S99.922A Encounter type: initial encounter Injury of left ankle, initial encounter S99.912A Encounter type: initial encounter Bunion of great toe of left foot M21.612 Asymptomatic HIV infection, with no history of HIV-related illness Z21 HIV symptom status: asymptomatic, with no history of HIV-related illness
== END 2024-12-13 11:29 | disposition home or self-care (01) ==
PROVIDERS: Visit Provider Nurse Practitioner Family
DX: S99.922A Unspecified injury of left foot, initial encounter (principal); S99.912A Unspecified injury of left ankle, initial encounter; M21.612 Bunion of left foot; Z21 Asymptomatic human immunodeficiency virus [HIV] infection status

== ENCOUNTER 2024-12-13 09:55 | Outpatient (REF) | payer OTHER, SELFPAY ==
--- NOTE | ~2024-12-13 | XR_ITS ---
CLINICAL HISTORY: S99.922A - Unspecified injury of left foot, initial encounter Exam: AP, lateral, and oblique views of the left foot. Comparison: None. Findings: Moderate to severe hallux valgus with bunion formation. Alignment of the Lisfranc articulation is anatomic. No acute fracture. Moderate-sized os navicularis. Impression: No fracture. This document has been electronically signed by: Tristan Shea MD on 12/13/2024 12:06:25
--- NOTE | ~2024-12-13 | XR_ITS ---
CLINICAL HISTORY: S99.922A - Unspecified injury of left foot, initial encounter Exam: AP and mortise views of the left ankle. Comparison: Left foot radiographs from same time. Findings: Bony alignment of the ankle is anatomic. No fracture. Ankle mortise is intact. Impression: No fracture. This document has been electronically signed by: Tristan Shea MD on 12/13/2024 12:06:01
--- OUTSIDE RECORDS SUMMARY | 2024-12-13 11:22 | XMS_ITS | Encounter Summary ---
Author Organization [facility] Address [address] [place] [address] Care Team Providers Care Money Laundering Investigator Name Role Phone Physician, Pcp Unknown Primary Care Provider Erum vailable Encounter Details Date Type Department Care Team (Latest Contact Info) Description 05/05/2024 Lab Requisition [facility] Lab [address] [facility] [place] [id number] Priya Andrews MD [address] [place] [id number] Human immunodeficiency virus (HIV) disease ([facility] V24, [facility] V28); Chronic sinusitis, unspecified Social History Tobacco Use Types Packs/Day Years Used Date Smoking Tobacco: Never Assessed Sex and Gender Information Value Date Recorded Sex Assigned at Not on file Legal Sex Male 5:07 PM EST Gender Identity Not on file Sexual Orientation Not on file documented as of this encounter Plan of Treatment Not on file documented as of this encounter Procedures Procedure Name Priority Date/Time Associated Diagnosis Comments RESPIRATORY VIRUS PANEL MOLECULAR STUDY Routine 05/05/2024 2:26 PM EST Human immunodeficiency virus (HIV) disease ([facility]) Chronic sinusitis, unspecified CHLAMYDIA TRACHOMATIS AND NEISSERIA GONORRHOEAE PCR Routine 05/05/2024 2:26 PM EST Human immunodeficiency virus (HIV) disease ([facility]) Chronic sinusitis, unspecified CHLAMYDIA TRACHOMATIS AND NEISSERIA GONORRHOEAE PCR Routine 05/05/2024 2:26 PM EST Human immunodeficiency virus (HIV) disease ([facility]) Chronic sinusitis, unspecified CULTURE THROAT Routine 05/05/2024 2:26 PM EST Human immunodeficiency virus (HIV) disease ([facility]) Chronic sinusitis, unspecified documented in this encounter Results * Respiratory virus panel molecular study (05/05/2024 2:26 PM EST) Adenovirus Detection by PCR Not Detected Not Detected LAB MICROBIOLOGY METHOD 05/05/2024 7:56 PM [facility] Influenza A PCR Not Detected Not Detected LAB MICROBIOLOGY METHOD 05/05/2024 7:56 PM [facility] Influenza B PCR Not Detected Not Detected LAB MICROBIOLOGY METHOD 05/05/2024 7:56 PM [facility] Coronavirus 229E Not Detected Not Detected LAB MICROBIOLOGY METHOD 05/05/2024 7:56 PM [facility] Coronavirus HKU1 Not Detected Not Detected LAB MICROBIOLOGY METHOD 05/05/2024 7:56 PM [facility] Coronavirus OC43 Not Detected Not Detected LAB MICROBIOLOGY METHOD 05/05/2024 7:56 PM [facility] Coronavirus NL63 Not Detected Not Detected LAB MICROBIOLOGY METHOD 05/05/2024 7:56 PM [facility] Parainfluenza Virus 1 Not Detected Not Detected LAB MICROBIOLOGY METHOD 05/05/2024 7:56 PM [facility] Parainfluenza Virus 2 Not Detected Not Detected LAB MICROBIOLOGY METHOD 05/05/2024 7:56 PM [facility] Parainfluenza Virus 3 Not Detected Not Detected LAB MICROBIOLOGY METHOD 05/05/2024 7:56 PM [facility] Parainfluenza Virus 4 Not Detected Not Detected LAB MICROBIOLOGY METHOD 05/05/2024 7:56 PM [facility] RSV PCR Not Detected Not Detected LAB MICROBIOLOGY METHOD 05/05/2024 7:56 PM [facility] Human Metapneumovirus A and B Not Detected Not Detected LAB MICROBIOLOGY METHOD 05/05/2024 7:56 PM EST [facility] Rhinovirus/Entero virus Not Detected Not Detected LAB MICROBIOLOGY METHOD 05/05/2024 7:56 PM EST [facility] Bordetella pertussis Not Detected Not Detected LAB MICROBIOLOGY METHOD 05/05/2024 7:56 PM EST [facility] Bordetella parapertussis Not Detected Not Detected LAB MICROBIOLOGY METHOD 05/05/2024 7:56 PM EST [facility] Mycoplasma pneumo by PCR Not Detected Not Detected LAB MICROBIOLOGY METHOD 05/05/2024 7:56 PM EST [facility] Chlamydia pneumoniae Not Detected Not Detected LAB MICROBIOLOGY METHOD 05/05/2024 7:56 PM [facility] SARS COV-2 Not Detected Not Detected LAB MICROBIOLOGY METHOD 05/05/2024 7:56 PM [facility] Swab Both anterior nares / Unknown Non-blood Collection / Unknown 05/05/2024 2:26 PM EST 05/05/2024 6:52 PM EST [facility] - 05/05/2024 7:56 PM EST Testing was performed using the [employer] Respiratory Pathogen PCR Assay. All results must be correlated with the clinical findings. Results should not be used as the sole basis for diagnosis. False Negative results may occur from the presence of sequence variants in the region targeted by the assay or the presence of inhibitors. Results may be affected by concurrent antiviral/antimicrobial therapy or levels of organisms that are below the limit of detection. us Priya Andrews MD LAB MICROBIOLOGY - GENERA L ORDERABLES Final Result [facility] [address] [place] [address], * Chlamydia trachomatis and Neisseria gonorrhoeae molecular study (05/05/2024 2:26 PM EST) Neisseria gonorrhoeae PCR Negative Negative LAB MOLECULAR DIAGNOSTICS METHOD 05/06/2024 10:43 AM [facility] Chlamydia trachomatis PCR Negative Negative LAB MOLECULAR DIAGNOSTICS METHOD 05/06/2024 10:43 AM [facility] Swab Structure of anterior portion of neck / Unknown Non-blood Collection / Unknown 05/05/2024 2:26 PM EST 05/05/2024 6:52 PM EST Priya Andrews MD LAB MICROBIOLOGY - GENERA L ORDERABLES Final Result [facility] [address] [place] [address], [place] [phone] * Chlamydia trachomatis and Neisseria gonorrhoeae molecular study (05/05/2024 2:26 PM EST) Neisseria gonorrhoeae PCR Negative Negative LAB MOLECULAR DIAGNOSTICS METHOD 05/06/2024 10:26 AM [facility] Chlamydia trachomatis PCR Negative Negative LAB MOLECULAR DIAGNOSTICS METHOD 05/06/2024 10:26 AM [facility] Swab Rectum structure / Unknown Non-blood Collection / Unknown 05/05/2024 2:26 PM EST 05/05/2024 6:52 PM EST Priya Andrews MD LAB MICROBIOLOGY - GENERA L ORDERABLES Final Result [facility] [address] [place] [address], [place] [phone] * Culture throat (05/05/2024 2:26 PM EST) Culture, Throat No pathogens isolated. 05/07/2024 11:27 AM [facility] Swab Structure of anterior portion of neck / Unknown Non-blood Collection / Unknown 05/05/2024 2:26 PM EST 05/05/2024 6:52 PM EST us Priya Andrews MD LAB MICROBIOLOGY - GENERA L ORDERABLES Final Result [facility] [address] [place] [address], documented in this encounter Visit Diagnoses Diagnosis Human immunodeficiency virus (HIV) disease ([facility] V24, [facility] V28) Human immunodeficiency virus [HIV] disease Chronic sinusitis, unspecified documented in this encounter Care Teams Money Laundering Investigator Relationship Specialty Start Date End Date Physician, Pcp Unknown PCP - General 10/31/24 documented as of this encounter
== END 2024-12-13 09:56 | disposition home or self-care (01) ==
LOC: HO.HMGCX 09:55
PROVIDERS: PCP Family Medicine; Visit Provider Nurse Practitioner Family
DX: S99.922A Unspecified injury of left foot, initial encounter (principal); S99.912A Unspecified injury of left ankle, initial encounter; M21.612 Bunion of left foot; Z21 Asymptomatic human immunodeficiency virus [HIV] infection status; X58.XXXA Exposure to other specified factors, initial encounter; Y93.9 Activity, unspecified; Y92.89 Other specified places as the place of occurrence of the external cause; Y99.9 Unspecified external cause status
CPT/HCPCS: 73600; 73630

== ENCOUNTER → 2024-12-13 11:23 | Outpatient (BNV) | payer OTHER, SELFPAY | PROVIDERS: PCP Family Medicine; Visit Provider Radiology Diagnostic Radiology | DX: S99.922A Unspecified injury of left foot, initial encounter (principal) | CPT/HCPCS: 73600; 73630 ==

== ENCOUNTER 2025-02-13 12:56 | Outpatient (AMB) | payer OTHER, SELFPAY ==
--- OUTSIDE RECORDS SUMMARY | 2025-02-13 12:59 | XMS_ITS | Patient Health Record ---
Author Organization [facility] Address [address] [address] Care Team Providers Care Fiscal Officer Name Role Phone Amos Oliver Primary Care Provider Unavailab SKINNY Yousif Unavailable [phone] Allergies Allergen (clinical drug ingredient) Drug/Non Drug Allergy documented on EMR Reaction Allergy Type Onset Date Status seasonal (uncoded) Unknown Allergy A ctive Reason For Referral No Information Medications Medication SIG (Take, Route, Frequency, Duration) Notes Start Date End Date Status Doxycycline DoxyPEP 50 mcg spray Active Fluticasone Propionate 50 MCG/ACT 1 spray in each nostril Nasally Twice a day Active Loratadine 10 MG 1 tablet Orally Once a day Active Biktarvy 50-200-25 MG 1 tablet Orally On ce a day Active Problems Problem Type SNOMED Code ICD Code Onset Dates Problem Status W/U Status Risk Notes Problem Hallux valgus of left foot (8436928456) Hallux valgus of left foot (M20.12) Active confirmed Vital Signs Height 5ft 8in in 01/06/2025 Weight 222.3 lbs 01/06/2025 BMI 33.8 kg/m2 01/06/2025 Encounters Encounter Location Date Provider Diagnosis [facility] [address] [address] 01/06/2025 SKINNY FRANK Hallux valgus of left foot M20.12 [facility] [address] [address] 01/06/2025 SKINNY FRANK [facility] [address] [address] 01/06/2025 SKINNY FRANK [facility] [address] [address] 01/14/2025 SKINNY MARIE [facility] [address] [place] [address] 01/19/2025 SKINNY MARIE [facility] [address] [place] [address] 01/19/2025 SKINNY MARIE [facility] [address] [place] [address] 01/28/2025 SKINNY MARIE [facility] [address] [place] [address] 02/02/2025 SKINNY MARIE Assessments Encounter Date Diagnosis (ICD Code) Assessment Notes Treatment Notes Treatment Clinical Notes Section Notes 01/06/2025 Hallux valgus of left foot (ICD-10 - M20.12) Patient examined and evaluated today. Past medical history reviewed in detail. Three weight bearing radiographs of the left were taken in the office and reviewed with the patient on the computer with the help of a skeletal foot model. I had a long discussion with the patient about hallux valgus (bunion) deformities. This is a structural deformity of the 1st metatarsal bone that also affects the 1st metatarsal phalangeal joint and can affect the lesser toes as well. I discussed that bunions can be hereditary due to foot structure. They can also be due to past trauma or arthritis. I educated the patient that there is no way of predicting if the bunion will progress in severity or not. I discussed that all conservative treatment options will help with pain, but will not make the deformity go away. Patient understood. I went through conservative options which included shoes with a wider toe box, RICE therapy, anti-inflammatorie s, padding, and cortisone injections. I also talked a little today about surgical procedures and the associated risks. I advised the patient that surgery should be considered when the pain is affecting day to day activities. Surgery does not guarantee complete resolution of pain. There is always a risk of residual deformity, hypersensitivity, stiffness, edema, and recurrence when surgery is performed. Patient expressed understanding and wishes to proceed with surgical intervention. I gave him a folder with all my surgical information in it. We will look for a date in January and start the pre-op work ups. I advised that with his type of job.. he will need to be out of work for 6 months. He understood. I encouraged him to call if he has any additional questions or concerns. Plan Of Treatment Pending Test Test Name Order Date X ray : Foot, left 3v 01/06/2025 CBC (COMPLETE BLOOD COUNT) 01/06/2025 Vitamin D, [id number] 01/06/2025 [id number] 01/06/2025 Next Appt Details Provider Name:SKINNY MARIE, 02/20/2025 10:00:00 AM, [address] [facility], [place] [address], [place], [address], Provider Name:SKINNY MONTOYAALLEY, 02/27/2025 07:30:00 AM, [address] [place] [address], [phone], Provider Name:SKINNY FRANK, 03/06/2025 11:00:00 AM, [address] [facility], [place] [address], [place], [address], Provider Name:SKINNY NOLASCOEY, 03/13/2025 10:00:00 AM, [address] [facility], [place] [address], [place], [address], Insurance Providers Payer Name Payer Address Payer Phone Subscriber Number Group Number Insured Name Patient Relationship to Insured Coverage Start Date Coverage End Date [employer] [address] [address] [place] [phone] [id number] Luisito Castellanos Self - patient is the insured Medical (General) History Medical History History ICD Code HIV positive Surgical History Surgery Date(Month/Year) cholecystectomy Colonoscopy
--- OUTSIDE RECORDS SUMMARY | 2025-02-13 12:59 | XMS_ITS | Encounter Summary ---
Author Organization [facility] Address [address] [place] [address] Care Team Providers Care Director Dermatology Name Role Phone Physician, Pcp Unknown Primary Care Provider Erum vailable Encounter Details Date Type Department Care Team (Latest Contact Info) Description 05/05/2024 Lab Requisition [facility] - Main Lab [address] [facility] [place] [phone] Priya Andrews MD [address] [place] [phone] Human immunodeficiency virus (HIV) disease ([facility] V24, [facility] V28); Chronic sinusitis, unspecified Social History Tobacco [...] PM EST Human immunodeficiency virus (HIV) disease ([facility]) Chronic sinusitis, unspecified CHLAMYDIA TRACHOMATIS AND NEISSERIA GONORRHOEAE PCR Routine 05/05/2024 2:26 PM EST Human immunodeficiency virus (HIV) disease ([facility]) Chronic sinusitis, unspecified CHLAMYDIA TRACHOMATIS AND NEISSERIA GONORRHOEAE PCR Routine 05/05/2024 2:26 PM EST Human immunodeficiency virus (HIV) disease ([facility]) Chronic sinusitis, unspecified CULTURE THROAT Routine 05/05/2024 2:26 PM EST Human immunodeficiency virus (HIV) disease ([facility]) Chronic sinusitis, unspecified documented in this encounter [...] LAB MICROBIOLOGY METHOD 05/05/2024 7:56 PM EST [facility] Rhinovirus/Entero virus Not Detected Not Detected LAB MICROBIOLOGY METHOD 05/05/2024 7:56 PM EST [facility] Bordetella pertussis Not Detected Not Detected LAB MICROBIOLOGY METHOD 05/05/2024 7:56 PM EST [facility] Bordetella parapertussis Not Detected Not Detected LAB MICROBIOLOGY METHOD 05/05/2024 7:56 PM EST [facility] Mycoplasma pneumo by PCR Not Detected Not Detected LAB MICROBIOLOGY METHOD 05/05/2024 7:56 PM EST [facility] Chlamydia pneumoniae Not Detected Not Detected LAB MICROBIOLOGY METHOD 05/05/2024 7:56 PM [facility] SARS COV-2 Not Detected Not Detected LAB MICROBIOLOGY METHOD 05/05/2024 7:56 PM [facility] Swab Both anterior nares / Unknown Non-blood Collection / Unknown 05/05/2024 2:26 PM EST 05/05/2024 6:52 PM EST [facility] - 05/05/2024 7:56 PM EST Testing was performed using the [employer] Respiratory Pathogen PCR Assay. All results must [...] MICROBIOLOGY - GENERA L ORDERABLES Final Result [facility] [address] [place] [address], * Chlamydia trachomatis and Neisseria gonorrhoeae molecular study (05/05/2024 2:26 PM EST) Neisseria gonorrhoeae PCR Negative Negative LAB MOLECULAR DIAGNOSTICS METHOD 01/13/2025 1:41 PM EDT [facility] Comment: This specimen type has not been evaluated for this method. Interpret results with caution. Chlamydia trachomatis PCR Negative Negative LAB MOLECULAR DIAGNOSTICS METHOD 01/13/2025 1:41 PM EDT [facility] Comment: This specimen type has not been evaluated for this method. Interpret results with caution. Swab Structure of anterior portion of neck / Unknown Non-blood Collection / Unknown 05/05/2024 2:26 PM EST 05/05/2024 6:52 PM EST us Priya Andrews MD LAB MICROBIOLOGY - GENERA L ORDERABLES Edited Result - Final Performing Organization Address City/[facility]/ZIP Co de Phone Number [facility] [address] [place] [address], [place] [phone] * Chlamydia trachomatis and Neisseria gonorrhoeae molecular study (05/05/2024 2:26 PM EST) Neisseria gonorrhoeae PCR Negative Negative LAB MOLECULAR DIAGNOSTICS METHOD 01/13/2025 8:43 AM EDT [facility] Comment: This specimen type has not been evaluated for this method. Interpret results with caution. Chlamydia trachomatis PCR Negative Negative LAB MOLECULAR DIAGNOSTICS METHOD 01/13/2025 8:43 AM T [facility] Comment: This specimen type has not been evaluated for this method. Interpret results with caution. Swab Rectum structure / Unknown Non-blood Collection / Unknown 05/05/2024 2:26 PM EST 05/05/2024 6:52 PM EST us Priya Andrews MD LAB MICROBIOLOGY - GENERA L ORDERABLES Edited Result - Final [facility] [address] [place] [address], [place] [phone] * Culture throat (05/05/2024 2:26 PM EST) Culture, Throat No pathogens isolated. 05/07/2024 11:27 AM EST [facility] Swab Structure of anterior portion of neck / Unknown Non-blood Collection / Unknown 05/05/2024 2:26 PM EST 05/05/2024 6:52 PM EST us Priya Andrews MD LAB MICROBIOLOGY - GENERA L ORDERABLES Final Result [facility] [address] [place] [address], documented in this encounter Visit Diagnoses Diagnosis Human immunodeficiency virus (HIV) disease ([facility] V24, [facility] V28) Human immunodeficiency virus [HIV] disease Chronic sinusitis, unspecified documented in this encounter Care Teams Director Dermatology Relationship Specialty Start Date End Date Physician, Pcp Unknown PCP - General 10/31/24 documented as of this encounter
--- NOTE | 2025-02-13 13:03 | MHC.PC.OV ---
Vital Signs 02/13/25 13:16 Height 5 ft 3 in Weight 221 lb BMI 39.1 BP 102/62 Blood Pressure Location Rt brachial Position Sitting Respiration 18 Pulse 86 Pulse Source Pulse Oximeter Temp 98.2 F Temp Source Temporal Artery Scan Pulse Oximetry (%) 97 Oxygen Delivery Method Room Air Intake Visit Reasons: Pre-op,Surgery date 02/27/2025 Intake Note: Luisito presents in the office today for a pre-op for a bunion correction. Allergies No Known Allergies Allergy (Verified 02/13/25 13:08) Medication List - Last Reconciled 02/13/25 by Amos Oliver MD ascorbic acid (vitamin C) 1,000 mg PO DAILY whpckjahu-cugwyrpu-viupwro ala 50-200-25 mg (Biktarvy) 1 tab PO DAILY biotin mcg PO calcium carbonate 260 mg PO DAILY cholecalciferol (vitamin D3) 10 mcg PO DAILY doxycycline hyclate 100 mg PO BID fluticasone propionate 50 mcg/actuation 1 spray intranasal BID lecithin mg PO loratadine (Claritin) 10 mg PO DAILY magnesium 250 mg PO DAILY omega-3 fatty acids 500 mg PO DAILY valacyclovir 1,000 mg PO DAILY PRN zinc gluconate 30 mg PO DAILY Tobacco use date assessed: 02/13/25 Dental Screening Dental Screen Date: 02/13/25 Did you have a dental visit in the last 12 months?: Yes Did you have a dental problem in the last 6 months where you did not have access to dental care?: No Was dental information given to patient?: Patient has dentist HPI Pre-op,Surgery date 02/27/2025 HPI Details Patient presents for preoperative clearance prior to bunionectomy. Procedure: Hallux Valgus correction Date:? 02/27/2025 Surgeon: Kellie Jordan Anesthesia: General Cardiac Hx: None Pulmonary Hx: None Prior Surgical Complications: None Prior Anesthesia Complications: None Coag issues: None Functional [place]: Lifts weights 2x a week. Treadmill 30+ minutes & Stairmaster 30 min. HPI Comments History of Present Illness Details Documentation assistance for Amos Oliver MD, was provided by Cal Thomas,? Nursing Home Physician on 02/13/2025 at 1:50 PM EST. I, Dr. Oliver, have read, observed, and verified documentation. ?? [facility] Medical History Cervical lymphadenopathy Lymphadenopathy Enlarged tonsils Back pain Normal physical exam Strep pharyngitis Neck pain Immunization counseling Hematuria Syphilis Homosexuality Flank pain HIV (human immunodeficiency virus infection) Family History (Updated 02/13/25 @ 13:15 by Marry Kilgore MA) Maternal Aunt Substance abuse Sister FHx: mental illness Anxiety Depression Social History (Updated 02/13/25 @ 13:16 by Marry Kilgore MA) Housing: House Alcohol intake: never Patient Tobacco Use Status: Never used Tobacco e-Cigarette/Vaping Use: Never Used Second Hand Smoke Exposure: No Substance Use Type: Marijuana 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 1. Little interest or pleasure in doing things: not at all 2. Feeling down, depressed, or hopeless: not at all 3. Trouble falling or staying asleep, or sleeping too much: not at all 4. Feeling tired or having little energy: not at all 5. Poor appetite or overeating: not at all 6. Feeling bad about yourself - or that you are a failure or have let yourself or your family down: not at all 7. Trouble concentrating on things, such as reading the newspaper or watching television: not at all 8. Moving or speaking so slowly that other people could have noticed. Or the opposite - being so fidgety or restless that you have been moving around a lot more than usual: not at all 9. Thoughts that you would be better off or of hurting yourself in some way: not at all Total score: 0 Depression Screening Interpretation: Positive Depression Screening Done: Yes 67546 - PHQ-9 Billing: Yes Source: Developed by Drs. Josemanuel Harvey, Tana Jang, Venancio Reich and colleagues, with an educational dacia from [employer]. Thrive Questionnaire Date Thrive assessed: 02/13/25 I am a: Patient What is your living situation today?: I have a steady place to live Within the past 12 months, did the food you bought not last and you didn't have the money to get more?: Never true Within the past 12 months, did you worry whether your food would run out before you got money to buy more?: Sometimes True Do you have trouble paying for medicines?: No Do you have trouble getting transportation to medical appointments?: No Do you have trouble paying your heating and electricity bill?: No Do you have trouble taking care of your child, family member or friend?: No Do you have trouble with day-to-day activities such as bathing, preparing meals, shopping, managing finances, etc.?: No Are you currently unemployed and looking for a job?: No Are you interested in more education?: Yes Please select the resources that you would like help with: None Currently or been in a relationship where the following occur: No concerns reported THRIVE Score: 1 AUDIT C Alcohol Use Questionnaire (AUDIT-C) 1. How often do you have a drink containing alcohol?: Never 3. How often do you have six or more drinks on one occasion?: Never Total Score: 0 FROYLAN-7 AMB Questionnaire FROYLAN-7 Date FROYLAN - 7 assessed: 02/13/25 Feeling nervous, anxious, or on edge: 0 = Not at all Not being able to stop or control worryin = Not at all Worrying too much about different things: 0 = Not at all Trouble relaxin = Not at all Being so restless that it is hard to sit still: 0 = Not at all Becoming easily annoyed or irritable: 0 = Not at all Feeling afraid as if something awful might happen: 0 = Not at all Total FROYLAN-7 score (0-4 normal; 5-9 mild; 10-14 moderate; 15-21 severe): 0 Source: Developed by Drs. Josemanuel Harvey, Tana Jang, Venancio Reich and colleagues, with an educational dacia from [employer]. FROYLAN-7 Assessment Billing FROYLAN-7 Assessment Tool: FROLYAN-7 Assessment 44484 Review of Systems Const Denies chills, Denies fatigue, Denies fever(s), Denies headache(s) and Denies weakness ENT Denies dizziness and Denies headache(s) Card Denies chest pain, Denies lightheadedness, Denies dyspnea and Denies other (Palpitations) Resp Denies cough, Denies dyspnea, Denies wheezing and Denies other ( shortness of breath) Musc Denies numbness and Denies tingling Neuro Denies dizziness, Denies headache(s), Denies numbness, Denies tingling, Denies paresthesias and Denies weakness Psych Denies anxiety and Denies depression Endo Denies fatigue Aller/Immun Denies wheezing Physical exam (Primary Care) Vital Signs: Last Vital Signs Temp 98.2 F 02/13/25 13:16 Pulse 86 02/13/25 13:16 Resp 18 02/13/25 13:16 BP 102/62 02/13/25 13:16 Pulse Ox 97 02/13/25 13:16 Oxygen Delivery Method Room Air 02/13/25 13:16 BMI result Body Mass Index 39.1 Tobacco/Smoking Status: Tobacco use Status Tobacco use date assessed 02/13/25 02/13/25 13:20 Patient Tobacco Use Status Never used Tobacco 02/13/25 13:16 e-Cigarette/Vaping Use Never Used 02/13/25 13:16 PHQ-9: PHQ-9 Score PHQ-9: Total score 0 02/13/25 13:20 Depression Screening Interpretation: Positive Thrive Assessment: Date of Thrive Assessment Date Thrive assessed 02/13/25 02/13/25 13:20 Currently or been in a relationship where the following occur: No concerns reported Const General: no acute distress and well developed Nutritional Appearance: well nourished Orientation/consciousness: patient oriented x3 HENMT Head: Yes normocephalic and Yes atraumatic Eyes General: appearance normal, both eyes and all related structures Pupils: Equal, round and reactive pupils present EOM: EOMs intact bilaterally Resp Effort & Inspection: normal respiratory effort Auscultation: clear to auscultation bilaterally Cardio Rate: regular rate Rhythm: regular rhythm Heart sounds: S1 normal heart sound present, S2 normal heart sound present, no gallops, no murmurs and no rubs Neuro General: patient oriented x3 and gait normal Cranial nerves: Yes Equal, round and reactive pupils present Extrem Other: Bunion L foot Psych Affect: normal affect Coding Level of Care Code Est Pt Level 3 (19737) Diagnoses Pre-operative clearance Z01.818 Additional Codes FROYLAN-7 Assessment Billing - FROYLAN-7 Assessment Tool: FROYLAN-7 Assessment 35070 ([id number]) PHQ-9 - 69397 - PHQ-9 Billing: Yes ([id number]) Assessment & Plan Assessment & Plan (1) Pre-operative clearance: Code(s): Z01.818 - Encounter for other preprocedural examination Category: Medical Plan: 34-year-old male presents for preoperative clearance prior to hallux valgus correction of left foot. No history of heart disease or coronary disease. EKG shows normal sinus rhythm, normal axis, no hypertrophy, no significant Q-wave in inferior leads, no ST-T-wave changes. No significant change from prior EKG. Cardiac exam is within normal limits Will pulmonary disease. Normal pulmonary exam by auscultation. No prior complications from surgeries or anesthesia. No bleeding or clotting disorders Good functional reserve Low risk patient for low risk procedure. * no contraindications to proceeding procedure. Orders: Orders Complete Blood Count Auto Diff Today Z00.00 - Encounter for general adult medical examination without abnormal findings, Z01.818 - Encounter for other preprocedural examination AMB EKG-In Office Today Z01.818 - Encounter for other preprocedural examination Basic Metabolic Panel Today Z00.00 - Encounter for general adult medical examination without abnormal findings, Z01.818 - Encounter for other preprocedural examination
[2025-02-13 13:16] VITALS: BP 102/62; PULSE 86; RESP 18; TEMP 36.8; O2SAT 97; BMI 39.1
== END 2025-02-13 13:48 | disposition home or self-care (01) ==
LOC: HO.HMCFM 12:57
PROVIDERS: PCP Family Medicine; Visit Provider Family Medicine
DX: Z01.818 Encounter for other preprocedural examination (principal)

== ENCOUNTER 2025-02-13 12:56 | Outpatient (REF) | payer OTHER, SELFPAY ==
[2025-02-13 17:44] LABS: MANUAL DIFF FLAG NO
[2025-02-13 17:47] LABS: Hematocrit 42.2 % (42.0-52.0); Hemoglobin 13.9 g/dl (14.0-18.0); Imm Gran Abs Auto 0.03 X10*3/uL (0.00-0.03); Imm Gran Pct Auto 0.4 % (0.0-0.4); Lymphocytes Absolute Auto 2.9 X10*3/uL (1.2-4.9); Mean Corpuscular HGB Conc 32.9 g/dl (31.0-36.0); Mean Corpuscular Hemoglobin 27.7 pg (27.0-33.0); Mean Corpuscular Volume 84.1 fL (80.0-98.0); NRBC Abs Auto 0.000 X10*3/uL (0.0-0.012); NRBC Pct Auto 0.0 /100WBC (0.0-0.2); Platelet Count 300 X10*3/uL (160-400); Red Blood Count 5.02 X10*6/uL (4.60-5.80); White Blood Count 7.1 X10*3/uL (4.8-10.8)
[2025-02-13 18:00] LABS: Anion Gap 11 (12-20); Blood Urea Nitrogen 19 mg/dL (9-16); Calcium 8.8 mg/dL (8.4-10.2); Carbon Dioxide 27 mmol/L (22-29); Chloride 104 mmol/L (96-108); Estimated Glomerular Filt Rate > 60; Potassium 4.4 mmol/L (3.3-5.1); Sodium 138 mmol/L (135-145)
== END 2025-02-13 12:57 | disposition home or self-care (01) ==
LOC: HO.WFDLDS 12:56
PROVIDERS: PCP Family Medicine; Visit Provider Family Medicine
DX: Z01.818 Encounter for other preprocedural examination (principal); M21.612 Bunion of left foot
CPT/HCPCS: 36415; 80048; 85025; 96127